=== PATIENT | female | born 1945 | race Caucasian/White ===

== ENCOUNTER → 2018-08-18 12:59 | Outpatient (CLI) | payer OTHER, SELFPAY ==
--- NOTE | 2018-08-18 | DI.MG.S_ITS ---
BILATERAL DIGITAL SCREENING MAMMOGRAM 3D/2D WITH CAD: 08/18/2018 CLINICAL: Routine screening. Comparison is made to exams dated: 08/12/2017 mammogram, 08/10/2016 mammogram, and 07/14/2014 mammogram - [facility]. The tissue of both breasts is extremely dense, which lowers the sensitivity of mammography. Current study was also evaluated with a Computer Aided Detection (CAD) system. There are a benign cyst and post operative findings in the left breast. There also are benign calcifications in both breasts. No significant masses, calcifications, or other findings are seen in either breast. There has been no significant interval change. IMPRESSION: There is no mammographic evidence of malignancy. A 1 year screening mammogram is recommended. This exam was interpreted at Station ID: [id number]. NOTE: For mammograms, a report in lay terms will be sent to the patient. Approximately 15% of breast malignancies will not be visualized mammographically. In the management of a palpable breast mass, a negative mammogram must not discourage biopsy of a clinically suspicious lesion. Electronically Signed By: Brian leon/vince:08/18/2018 13:43:00 letter sent: Normal Exam ACR BI-RADS Category 2: Benign Finding(s) 3342F
== END ==
PROVIDERS: Family Provider Internal Medicine; PCP Internal Medicine; Visit Provider Internal Medicine
DX: Z12.31 Encounter for screening mammogram for malignant neoplasm of breast (principal)
CPT/HCPCS: 77063; 77067

== ENCOUNTER → 2018-08-26 08:19 | Outpatient (CLI) | payer OTHER, SELFPAY ==
[2018-08-26 09:35] LABS: BUN Creatinine Ratio 25.7 (6-22); Blood Urea Nitrogen 18 mg/dL (7-17); Calcium 8.6 mg/dL (8.4-10.2); Carbon Dioxide 29 mmol/L (22-32); Chloride 104 mmol/L (98-107); Cholesterol 167 mg/dL (140-199); Estimated Glomerular Filt Rate > 60.0 mL/min (>60); Glucose 100 mg/dL (80-110); HDL Cholesterol 59 mg/dL (40-60); HEMOLYSIS 20 (0-50); LDL Cholesterol Calculated 98 mg/dL (<100); Potassium 4.6 mmol/L (3.4-5.1); Sodium 140 mmol/L (137-145); Triglycerides 51 mg/dL (35-150)
== END ==
PROVIDERS: Family Provider Internal Medicine; PCP Internal Medicine; Visit Provider Internal Medicine
DX: Z00.00 Encounter for general adult medical examination without abnormal findings (principal)
CPT/HCPCS: 36415; 80048; 80061

== ENCOUNTER → 2018-09-04 13:39 | Outpatient (CLI) | payer OTHER, SELFPAY | PROVIDERS: Family Provider Internal Medicine; PCP Internal Medicine; Visit Provider Internal Medicine | DX: M85.852 Other specified disorders of bone density and structure, left thigh (principal); Z78.0 Asymptomatic menopausal state; Z82.62 Family history of osteoporosis; Z87.891 Personal history of nicotine dependence | CPT/HCPCS: 77080 ==

== ENCOUNTER → 2019-11-12 08:12 | Outpatient (CLI) | payer OTHER, SELFPAY ==
--- NOTE | 2019-11-12 | DI.MG.S_ITS ---
BILATERAL DIGITAL SCREENING MAMMOGRAM 3D/2D WITH CAD: 11/12/2019 CLINICAL: Routine screening. Comparison is made to exams dated: 08/18/2018 mammogram, 08/12/2017 mammogram, 08/10/2016 mammogram, 01/04/2015 mammogram, 07/14/2014 mammogram, and 07/08/2014 mammogram - [facility]. The tissue of both breasts is extremely dense, which lowers the sensitivity of mammography. Current study was also evaluated with a Computer Aided Detection (CAD) system. There is a benign cyst in the left breast. There also are benign calcifications in both breasts. No significant masses, calcifications, or other findings are seen in either breast. There has been no significant interval change. IMPRESSION: There is no mammographic evidence of malignancy. A 1 year screening mammogram is recommended. This exam was interpreted at Station ID: [id number]. NOTE: For mammograms, a report in lay terms will be sent to the patient. Approximately 15% of breast malignancies will not be visualized mammographically. In the management of a palpable breast mass, a negative mammogram must not discourage biopsy of a clinically suspicious lesion. Electronically Signed By: David cordero/vince:11/12/2019 09:50:00 letter sent: Normal Exam ACR BI-RADS Category 2: Benign Finding(s) 3342F
== END ==
PROVIDERS: Family Provider Internal Medicine; PCP Internal Medicine; Referring Provider Internal Medicine; Visit Provider Internal Medicine
DX: Z12.31 Encounter for screening mammogram for malignant neoplasm of breast (principal)
CPT/HCPCS: 77063; 77067

== ENCOUNTER → 2019-11-28 09:21 | Outpatient (CLI) | payer OTHER, SELFPAY ==
[2019-11-30 17:36] LABS: COVID19 Sendout Not Detected (Not Detected)
== END ==
PROVIDERS: Family Provider Internal Medicine; PCP Internal Medicine; Visit Provider Physician Assistant
DX: R05 Cough (principal); R50.9 Fever, unspecified; R51 Headache
CPT/HCPCS: 87635

== ENCOUNTER → 2019-12-07 10:19 | Outpatient (CLI) | payer OTHER, SELFPAY ==
--- NOTE | 2019-12-07 | DI.RAD.S_ITS ---
PROCEDURE: XR CHEST 2V INDICATIONS: COUGH TECHNIQUE: 2 views of the chest were acquired. COMPARISON: None. FINDINGS: Surgical changes and devices: None. Dense consolidation seen within the right upper lobe. There is also dense left perihilar consolidation. Patchy ill-defined and consolidative opacities in the right lung base. No pleural effusions or pneumothorax. Mediastinum: Mediastinal contours are normal. Heart size is normal. Bones and chest wall: No vertebral body compression fracture. Spondylytic changes and facet arthropathy. Lateral curvature of the spine IMPRESSION: Severe bilateral dense pneumonia as above. Findings were immediately and personally telephoned to Cora CHAVEZ, covering for Dr. Cortes at the time of the study. Arrangements were made to transfer the patient to the emergency department for further treatment and assessment. Findings were also personally telephoned to Dr. Monroe in the emergency department at the time of the study. Dictated by: Gamaliel Perez M.D. on 12/07/2019 at 11:32 Approved by: Gamaliel Perez M.D. on 12/07/2019 at 11:37
[2019-12-07 10:40] LABS: RBC Urine None Seen (0-5/HPF)
[2019-12-07 11:04] LABS: Add Manual Diff / Slide Review NO; Basophils Absolute Auto 100 /uL (0-100); Basophils Percent Auto 0.6 % (0-2); Eosinophils Absolute Auto 100 /uL (0-450); Eosinophils Percent Auto 0.5 % (2-4); Hematocrit 38.6 % (36-46); Lymphocytes Absolute Auto 4600 /uL (1100-4500); Lymphocytes Percent Auto 21.1 % (25-40); Mean Corpuscular HGB Conc 33.5 % (30-36); Mean Corpuscular Hemoglobin 30.7 PG (26-34); Mean Corpuscular Volume 91.4 fL (80-100); Monocytes Absolute Auto 4500 /uL (0-900); Monocytes Percent Auto 20.6 % (3-14); Neutrophils Absolute Auto 12400 /uL (1500-7000); Neutrophils Percent Auto 57.2 % (50-75); Platelet Count 81 X10^3/uL (150-400); Red Blood Cell Count 4.23 X10^6/uL (4.0-5.2); Red Cell Distribution Width 15.2 % (11.6-14.8); White Blood Cell Count 21.7 X10^3/uL (4.5-11.0)
[2019-12-07 11:17] LABS: Albumin 2.7 g/dL (3.5-5.0); Albumin Globulin Ratio 0.8 (1.0-2.8); Alkaline Phosphatase 320 U/L (38-126); Aspartate Aminotransferase 120 IU/L (14-36); BUN Creatinine Ratio 50.4 (6-22); Bilirubin Total 3.9 mg/dL (0.2-1.3); Blood Urea Nitrogen 68 mg/dL (7-17); Calcium 8.8 mg/dL (8.4-10.2); Carbon Dioxide 21 mmol/L (22-32); Chloride 98 mmol/L (98-107); Estimated Glomerular Filt Rate 38.3 mL/min (>60); Globulin 3.3 g/dL (1.7-4.1); Glucose 104 mg/dL (80-110); HEMOLYSIS < 15 (0-50); Potassium 4.2 mmol/L (3.4-5.1); Sodium 134 mmol/L (137-145)
[2019-12-07 11:23] LABS: Alanine Aminotransferase 92 IU/L (<35)
[2019-12-07 15:04] LABS: Appearance Urine UA CLOUDY; Bilirubin Urine UA 2+ (NEGATIVE); Color Urine UA BROWN; Glucose Urine UA NEGATIVE (Negative); Ketones Urine UA NEGATIVE (NEGATIVE); Leukocyte Esterase Urine UA NEGATIVE (NEGATIVE); Nitrite Urine UA NEGATIVE (Negative); Occult Blood Urine UA NEGATIVE (Negative); Protein Urine UA 1+ (Negative)
[2019-12-07 15:31] LABS: Amorphous Sediment Urine 2+; Bacteria Urine Moderate (10-30); Granular Casts Urine 1-5/LPF; Squamous Epithelial Cell Urine 1-5 /HPF (0-5/HPF); WBC Urine 5-10/HPF (0-5/HPF)
[2019-12-07 15:32] LABS: Culture Indicated Urine Specimen Cultured; Mucus Urine 2+ (Negative)
[2019-12-07 15:33] LABS: Ictotest Urine Positive (Negative)
== END ==
PROVIDERS: Family Provider Internal Medicine; PCP Internal Medicine; Referring Provider Internal Medicine; Visit Provider Internal Medicine
DX: R53.1 Weakness (principal); R06.02 Shortness of breath; R05 Cough
CPT/HCPCS: 36415; 71046; 80053; 81001; 85025; 87086

== ENCOUNTER 2019-12-07 11:24 | Emergency (ER) | payer OTHER, SELFPAY ==
[2019-12-07] VITALS (52 sets, daily range): BP systolic 84–163; BP diastolic 49–74; PULSE 87–144; RESP 9–44; TEMP 35.4; O2SAT 59–98
--- NOTE | 2019-12-07 | DI.RAD.S_ITS ---
PROCEDURE: XR ABDOMEN 1V INDICATIONS: NG TUBE PLACEMENT TECHNIQUE: One view of the abdomen acquired. COMPARISON: None. FINDINGS: Surgical changes and devices: NG tube is present in the stomach. Overlying monitoring wires are present. Bowel: Bowel gas pattern is normal. Soft tissues: No suspicious abdominal calcifications. Visualized solid organ contours appear normal in size. Bones: No suspicious bony lesions. Scoliosis. IMPRESSION: Adequate placement of nasogastric tube. Dictated by: Anastasiya Valerio M.D. on 12/07/2019 at 14:44 Approved by: Anastasiya Valerio M.D. on 12/07/2019 at 14:45
--- NOTE | 2019-12-07 12:07 | PC.NURSE ---
Pt to room 6. Placed on high flow oxygen w/ sat 59 improved to 75%, Pt states she does want to intubated / full code.
[2019-12-07] MEDS: SODIUM CHLORIDE 0.9% 1,000 ML 1000 ML IV ×2 (12:10→12:15)
[2019-12-07] MEDS: SODIUM CHLORIDE 0.9% 1,000 ML 125 ML IV (12:10)
[2019-12-07 12:13] LABS: Add Manual Diff / Slide Review NO; Basophils Absolute Auto 200 /uL (0-100); Basophils Percent Auto 0.7 % (0-2); Eosinophils Absolute Auto 0 /uL (0-450); Eosinophils Percent Auto 0.1 % (2-4); Hematocrit 39.4 % (36-46); Hemoglobin 13.3 g/dL (12.0-16.0); Lymphocytes Absolute Auto 9800 /uL (1100-4500); Lymphocytes Percent Auto 42.5 % (25-40); Mean Corpuscular HGB Conc 33.7 % (30-36); Mean Corpuscular Hemoglobin 30.9 PG (26-34); Mean Corpuscular Volume 91.4 fL (80-100); Monocytes Absolute Auto 800 /uL (0-900); Monocytes Percent Auto 3.4 % (3-14); Neutrophils Absolute Auto 12300 /uL (1500-7000); Neutrophils Percent Auto 53.3 % (50-75); Platelet Count 80 X10^3/uL (150-400); Red Blood Cell Count 4.31 X10^6/uL (4.0-5.2); Red Cell Distribution Width 15.9 % (11.6-14.8); White Blood Cell Count 23.1 X10^3/uL (4.5-11.0)
[2019-12-07] MEDS: VANCOMYCIN 1,000 MG/200 ML PIGGYBACK 200 MG IV (12:15)
[2019-12-07] MEDS: methylPREDNISolone 125 MG/2 ML VIAL IV (12:15)
[2019-12-07 12:24] LABS: Albumin Globulin Ratio 0.9 (1.0-2.8); Alkaline Phosphatase 356 U/L (38-126); Aspartate Aminotransferase 129 IU/L (14-36); BUN Creatinine Ratio 42.2 (6-22); Bilirubin Total 4.2 mg/dL (0.2-1.3); Blood Urea Nitrogen 68 mg/dL (7-17); Calcium 9.3 mg/dL (8.4-10.2); Carbon Dioxide 19 mmol/L (22-32); Chloride 97 mmol/L (98-107); Creatine Kinase < 20 U/L (30-135); Estimated Glomerular Filt Rate 31.3 mL/min (>60); Globulin 3.5 g/dL (1.7-4.1); Glucose 109 mg/dL (80-110); HEMOLYSIS < 15 (0-50); Lactate Dehydrogenase 939 U/L (313-618); Potassium 4.4 mmol/L (3.4-5.1); Sodium 135 mmol/L (137-145); Total Protein 6.5 g/dL (6.3-8.2)
[2019-12-07 12:25] LABS: D Dimer 2315 ng/mL (<230)
--- NOTE | 2019-12-07 12:27 | ED_ITS ---
HPI - SOB/Dyspnea General Chief Complaint: Shortness of Breath/Dyspnea Stated Complaint: Andreia XR sent pt over Time Seen by Provider: 12/07/19 12:06 Source: patient and family Mode of arrival: Wheelchair Limitations: no limitations History of Present Illness HPI Narrative: CC: Hypoxia and shortness of breath. HPI: Patient had shortness of breath on November 26. She was treated with steroids at that time and antibiotics. The patient improve shortly and then a few days ago suddenly became worse. She has had a mild cough that has been nonproductive of any sputum. She denies a history of diabetes mellitus hy pertension myocardial infarction asthma or COPD. She has had no chest pain or pain or discomfort. She has just developed progressive weakness and fatigue with shortness of breath and respiratory distress. The patient was seen today in radiology and radiology sent the patient over here to the emergency department because she had a complete opacification of the right upper lobe. She also had opacification and infiltrate in the left middle lung field. The patient was initially evaluated on November 26 and was negative for Covid at that time. She currently denies any fever chills or sweats. She has had no nasal congestion sinus congestion or sore throat. She has had no abdominal pain she h as been nauseous but has had no vomiting or diarrhea. She has had no urinary symptoms. Related Data Home Medications Medication Instructions Recorded Confirmed calcium crb,[id number] 1 tab PO DAILY 12/07/19 12/07/19 [Citracal Plus Bone Density] Previous Rx's Medication Instructions Recorded amoxicillin 875 mg-potassium 1 tab PO BID #20 tab 11/28/19 clavulanate 125 mg tablet Allergies Allergy/AdvReac Type Severity Reaction Status Date / Time Sulfa (Sulfonamide Allergy Verified 12/07/19 13:13 Antibiotics) Review of Systems Review of Systems Narrative: Her review of systems were all negative except for those mentioned in the history of present illness. Patient History Medical History Pneumonia (Acute) Social History Smoking Status: Never smoker Smoking Status: Never smoker alcohol intake frequency: 0-2 drinks per day Substance Use Type: does not use Exam Narrative Exam Narrative: PHYSICAL EXAM: CONSTITUTIONAL: Awake, Alert, apprehensive in appears fearful. The patient appears chronically ill and very thin. l. HEAD: AT/NC EENT: PERRL, FROM of eyes, no discharge, . NOSE:No epistaxis or nasal drainage MOUTH:Oral mucosa is moist and pink, appears pale NECK: Supple, no obvious JVD, Trachea is midline without stridor, no palpable LN. SPINE: Palpationof the cervical, Thoracic, Lumbar or Sacral spine reveals no gross deformity or tenderness. No CVA tenderness. THORAX: No deformity, retractions, chest wall tenderness. LUNGS: Decreased breath sounds on the right lung with inspiratory crackles throughout both lung castellanos posteriorly. HEART: Tachycardic and regular. No appreciable murmur. Heart tones are distant ABDOMEN: Soft, non-tender, normal bowel sounds without guarding, rebound, rigidity or palpable mass. EXTREMITIES: No edema, deformity, tenderness or cyanosis. SKIN: No rash, bruising, petechiae or purpura. NEURO: Awake, alert, oriented, conversive, cranial nerves II-XII are symmetrical , moves all 4 extremities and is ambulatory. Initial Vital Signs Initial Vital Signs: Vital Signs Temperature 95.8 F L 12/07/19 11:44 Pulse Rate 103 H 12/07/19 11:44 Respiratory Rate 22 12/07/19 11:44 Blood Pressure 94/53 L 12/07/19 11:44 Pulse Oximetry 59 L 12/07/19 11:44 Course Course Course Narrative: 1230: The patient is currently on BiPAP. The patient was significantly hypoxic at 59%. The patient will need to be intubated most likely. Arterial blood gases will be performed to see whether not the patient responds to BiPAP. The patient is being evaluated for Coviid 19, she has been administered Levaquin and vancomycin. 1308: The patient's blood gas on 100% via to reveals a pH is 7.376 a pCO2 of 32.9 a PO2 of 69 and oxygen saturation 93% and this is on BiPAP. 1311: The patient's procalcitonin is 14.0. All of her liver function tests are abnormal. CRP is 43.2 BNP is 3800 in 20 lactate is elevated at 6.7 sodium is 135 potassium is 4.4 chloride 97 CO2 19 creatinine is 1.61 GFR is 31. WBCs are 23.1. The patient has been administered Levaquin and vancomycin as antibiotics and blood cultures remain pending. The patient's D-dimer is 2315 , troponin is less than 0.012. 1409: I discussed the patient with Dr. Miles the hogshead builder at [facility] in [place]. He has agreed to accept the patient. He recommends that we intubate the patient and if possible started a central line on the patient. 1448: Oral endotracheal intubation completed. Using the glide scope by staffed the solar panel technician who successfully intubated the patient without complications on the 1st attempt using a 7.5 Serbian endotracheal tube at 25 cm lip line. The patient maintained good saturations throughout the process at 90 to 94% oxygen saturation. Her heart rate went up to 144. Blood pressure remained between 128 and 144. 22.2 mg of etomidate. and 44 mg of Rocuronium. Symmetrical breath sounds. An NG tube is being placed on the patient the patient has been started on an infusion of propofol. The patient is maintaining good blood pressure at this time. A stat portable chest x-ray has been ordered on the patient to check tube placement. 1511: After intubation the patient's arterial blood gases on a rate of 16 revealed a pH is 7.161 a pCO2 of 60.6 and PO2 of 81 with an oxygen saturation of 92%. The rate is being increased to 24 and blood gases recheck. 1511: The helicopter transporting EMS is here to take the patient to [facility] Orders Ordered: ED Orders 12/07/19 12:00 Blood Culture Stat C-Reactive Protein Quant Stat Complete Blood Count AUTO DIFF Stat Comprehensive Metabolic Panel Stat D Dimer Stat Ferritin Stat Lactate (Lactic Acid) Stat Lactate Dehydrogenase Stat NT-proBNP (BNP-Adult 18+) Stat Procalcitonin Stat Troponin & CK Cardiac Panel Stat 12/07/19 12:05 BiPAP Ventilatory Support RT PROTOCOL EKG-12 Lead Stat 12/07/19 12:31 Arterial Blood Gas Stat 12/07/19 13:30 Ictotest Urine Stat Urinalysis and Microscopic Stat Urine Culture Stat 12/07/19 13:46 Consult to Dietitian, Adult Routine Arterial Blood Gas Stat Endotracheal tube suction As needed 12/07/19 14:00 XR chest 1V DAILY 12/07/19 15:00 Sputum Culture Stat 12/07/19 15:05 Arterial Blood Gas Routine Discontinued Medications Etomidate (Amidate) 22.2 mg 0.3 mg/kg (22.2 mg) IV NOW ONE Stop: 12/07/19 13:47 Last Admin: 12/07/19 14:38 Dose: 22.2 mg Documented by: MCKENZIE Fentanyl (Sublimaze) 25 mcg IV Q30MIN PRN PRN Reason: Pain, Severe (7-10) Last Admin: 12/07/19 15:05 Dose: 25 mcg Documented by: NATHANIEL Levofloxacin (Levaquin) 750 mg in 150 mls @ 100 mls/hr IV NOW ONE Stop: 12/07/19 13:35 Last Infusion: 12/07/19 14:50 Dose: 0 mls/hr Documented by: Admin: 12/07/19 13:20 Dose: 100 mls/hr Documented by: NATHANIEL Vancomycin HCl (Vancomycin) 1,000 mg in 200 mls @ 200 mls/hr IV Q24H KAYLIN Last Infusion: 12/07/19 13:20 Dose: 0 mls/hr Documented by: Admin: 12/07/19 12:15 Dose: 200 mls/hr Documented by: MCKENZIE Sodium Chloride (Normal Saline 0.9%) 1,000 mls @ 1,000 mls/hr IV BOLUS ONE Stop: 12/07/19 13:07 Last Infusion: 12/07/19 13:45 Dose: 0 mls/hr Documented by: Admin: 12/07/19 12:10 Dose: 1,000 mls/hr Documented by: MCKENZIE Sodium Chloride (Normal Saline 0.9%) 1,000 mls @ 125 mls/hr IV BOLUS ONE Stop: 12/07/19 20:07 Last Infusion: 12/07/19 15:37 Dose: 0 mls/hr Documented by: Infusion: 12/07/19 15:37 Dose: 150 mls/hr Documented by: Infusion: 12/07/19 14:57 Dose: 150 mls/hr Documented by: Admin: 12/07/19 12:10 Dose: 125 mls/hr Documented by: MCKENZIE Sodium Chloride (Normal Saline 0.9%) 1,000 mls @ 1,000 mls/hr IV BOLUS ONE Stop: 12/07/19 13:14 Last Infusion: 12/07/19 14:00 Dose: 0 mls/hr Documented by: Admin: 12/07/19 12:15 Dose: 1,000 mls/hr Documented by: NATHANIEL Propofol (Propofol) 1,000 mg in 100 mls @ 4.436 mls/hr IV TITRATE KAYLIN; Protocol Last Titration: 12/07/19 15:39 Dose: 0 mcg/kg/min, 0 mls/hr Documented by: Titration: 12/07/19 15:00 Dose: 20 mcg/kg/min, 8.872 mls/hr Documented by: Admin: 12/07/19 14:59 Dose: 10 mcg/kg/min, 4.436 mls/hr Documented by: MCKENZIE Methylprednisolone (Solu-Medrol 125 Mg Vial) 125 mg IV NOW ONE Stop: 12/07/19 12:07 Last Admin: 12/07/19 12:15 Dose: 125 mg Documented by: MCKENZIE Rocuronium [place] (Zemuron) 44 mg 0.6 mg/kg (44 mg) IV NOW ONE Stop: 12/07/19 13:47 Last Admin: 12/07/19 14:45 Dose: 44 mg Documented by: MCKENZIE Vital Signs Vital signs: Vital Signs - 8 hr 12/07/19 12:55 12/07/19 13:00 12/07/19 13:01 Pulse Rate 91 H 89 91 H Respiratory Rate 34 H 35 H 33 H Blood Pressure 88/55 L Pulse Oximetry 96 90 L 97 12/07/19 13:05 12/07/19 13:10 12/07/19 13:15 Pulse Rate 87 92 H 92 H Respiratory Rate 27 H 33 H 32 H Blood Pressure 95/55 L Pulse Oximetry 97 97 97 12/07/19 13:20 12/07/19 13:21 12/07/19 13:25 Pulse Rate 98 H 97 H 97 H Respiratory Rate 36 H 44 H 34 H Blood Pressure 99/54 L Pulse Oximetry 96 96 95 12/07/19 13:30 12/07/19 13:35 12/07/19 13:40 Pulse Rate 96 H 91 H 94 H Respiratory Rate 34 H 33 H 33 H Blood Pressure 105/59 L 104/49 L Pulse Oximetry 98 94 96 12/07/19 13:45 12/07/19 13:50 12/07/19 13:55 Pulse Rate 93 H 92 H 95 H Respiratory Rate 34 H 33 H 33 H Blood Pressure 91/52 L Pulse Oximetry 94 94 94 12/07/19 14:00 12/07/19 14:05 12/07/19 14:10 Pulse Rate 93 H 92 H 96 H Respiratory Rate 31 H 34 H 34 H Blood Pressure 94/61 102/56 L Pulse Oximetry 93 94 93 12/07/19 14:15 12/07/19 14:20 12/07/19 14:25 Pulse Rate 93 H 93 H 95 H Respiratory Rate 32 H 32 H 35 H Blood Pressure 97/52 L Pulse Oximetry 93 92 93 12/07/19 14:30 12/07/19 14:34 12/07/19 14:35 Pulse Rate 95 H 95 H 96 H Respiratory Rate 35 H 26 H 24 Blood Pressure 102/54 L 122/65 Pulse Oximetry 93 86 L 88 L 12/07/19 14:36 12/07/19 14:40 12/07/19 14:42 Pulse Rate 96 H 121 H 139 H Respiratory Rate 21 20 13 Blood Pressure 114/58 L 145/72 H 132/67 Pulse Oximetry 94 87 L 93 12/07/19 14:44 12/07/19 14:45 12/07/19 14:48 Pulse Rate 129 H 128 H 130 H Respiratory Rate 9 L 9 L 17 Blood Pressure 117/60 153/67 H Pulse Oximetry 93 92 91 12/07/19 14:50 12/07/19 14:52 12/07/19 14:53 Pulse Rate 109 H 113 H 115 H Respiratory Rate 13 16 16 Blood Pressure 142/68 H 138/62 Pulse Oximetry 88 L 88 L 88 L 12/07/19 14:55 12/07/19 14:56 12/07/19 15:00 Pulse Rate 117 H 122 H 141 H Respiratory Rate 16 17 16 Blood Pressure 145/66 H 152/73 H Pulse Oximetry 91 91 92 12/07/19 15:01 12/07/19 15:03 12/07/19 15:04 Pulse Rate 141 H 143 H 141 H Respiratory Rate 16 16 21 Blood Pressure 157/74 H 157/67 H 163/72 H Pulse Oximetry 93 93 92 12/07/19 15:05 12/07/19 15:14 12/07/19 15:25 Pulse Rate 144 H 140 H 133 H Respiratory Rate 16 23 Blood Pressure 133/65 Pulse Oximetry 94 90 L 90 L MDM - SOB/Dyspnea Lab Data Result diagrams: 12/07/19 12:00 12/07/19 12:00 Labs: Lab Results 12/07/19 12/07/19 12/07/19 Range/Units 12:00 12:00 12:00 WBC 23.1 H (4.5-11.0) X10^3/uL RBC 4.31 (4.0-5.2) X10^6/uL Hgb 13.3 (12.0-16.0) g/dL Hct 39.4 (36-46) % MCV 91.4 (80-100) fL MCH 30.9 (26-34) PG MCHC 33.7 (30-36) % RDW 15.9 H (11.6-14.8) % Plt Count 80 L (150-400) X10^3/uL Neut % (Auto) 53.3 (50-75) % Lymph % (Auto) 42.5 H D (25-40) % [place] % (Auto) 3.4 (3-14) % Eos % (Auto) 0.1 L (2-4) % Baso % (Auto) 0.7 (0-2) % Neut # (Auto) 08237 H (9010-2929) /uL Lymph # (Auto) 9800 H (8909-3926) /uL [place] # (Auto) 800 (0-900) /uL Eos # (Auto) 0 (0-450) /uL Baso # (Auto) 200 H (0-100) /uL D-Dimer 2315 H (<230) ng/mL ABG pH (7.35-7.45) ABG pCO2 (35-45) mmHg ABG pO2 (80-100) mmHg ABG HCO3 (22-26) mmol/L ABG Total CO2 (21-31) mmol/L ABG O2 Saturation (95-100) % ABG Base Excess (-2-2) mmol/L FiO2 Sodium (137-145) mmol/L Potassium (3.4-5.1) mmol/L Chloride (98-107) mmol/L Carbon Dioxide (22-32) mmol/L BUN (7-17) mg/dL Creatinine (0.52-1.04) mg/dL Estimated GFR (>60) mL/min BUN/Creatinine Ratio (6-22) Glucose (80-110) mg/dL Lactate (0.7-2.1) mmol/L Calcium (8.4-10.2) mg/dL Ferritin (11-264) ng/mL Total Bilirubin (0.2-1.3) mg/dL AST (14-36) IU/L ALT (<35) IU/L Alkaline Phosphatase (38-126) U/L Lactate Dehydrogenase (313-618) U/L Total Creatine Kinase (30-135) U/L CK-MB (CK-2) CK-MB (CK-2) Rel Index Troponin I (0.01-0.034) ng/mL C-Reactive Protein (<1.0) mg/dL NT-Pro-B Natriuret Pep (<125) pg/mL Total Protein (6.3-8.2) g/dL Albumin (3.5-5.0) g/dL Globulin (1.7-4.1) g/dL Albumin/Globulin Ratio (1.0-2.8) Procalcitonin 14.02 H (<0.5) ng/mL Urine Color Urine Appearance Urine pH (4.5-8.0) Ur Specific [place] (1.000-1.035) Urine Protein (Negative) Urine Glucose (UA) (Negative) g/dL Urine Ketones (NEGATIVE) Urine Occult Blood (Negative) Urine Nitrate (Negative) Urine Bilirubin (NEGATIVE) Ur Bilirubin Confirm (Negative) Urine Urobilinogen (0.2) E.U./dL Ur Leukocyte Esterase (NEGATIVE) Urine RBC (0-5/HPF) Urine WBC (0-5/HPF) Amorphous Sediment Urine Bacteria (None) Ur Culture Indicated? COVID-19 PCR (Negative) 12/07/19 12/07/19 12/07/19 Range/Units 12:00 12:00 12:10 WBC (4.5-11.0) X10^3/uL RBC (4.0-5.2) X10^6/uL Hgb (12.0-16.0) g/dL Hct (36-46) % MCV (80-100) fL MCH (26-34) PG MCHC (30-36) % RDW (11.6-14.8) % Plt Count (150-400) X10^3/uL Neut % (Auto) (50-75) % Lymph % (Auto) (25-40) % [place] % (Auto) (3-14) % Eos % (Auto) (2-4) % Baso % (Auto) (0-2) % Neut # (Auto) (6580-6532) /uL Lymph # (Auto) (6361-5681) /uL [place] # (Auto) (0-900) /uL Eos # (Auto) (0-450) /uL Baso # (Auto) (0-100) /uL D-Dimer (<230) ng/mL ABG pH (7.35-7.45) ABG pCO2 (35-45) mmHg ABG pO2 (80-100) mmHg ABG HCO3 (22-26) mmol/L ABG Total CO2 (21-31) mmol/L ABG O2 Saturation (95-100) % ABG Base Excess (-2-2) mmol/L FiO2 Sodium 135 L (137-145) mmol/L Potassium 4.4 (3.4-5.1) mmol/L Chloride 97 L (98-107) mmol/L Carbon Dioxide 19 L (22-32) mmol/L BUN 68 H (7-17) mg/dL Creatinine 1.61 H (0.52-1.04) mg/dL Estimated GFR 31.3 L (>60) mL/min BUN/Creatinine Ratio 42.2 H (6-22) Glucose 109 (80-110) mg/dL Lactate 6.7 H* (0.7-2.1) mmol/L Calcium 9.3 (8.4-10.2) mg/dL Ferritin 2200 H (11-264) ng/mL Total Bilirubin 4.2 H (0.2-1.3) mg/dL AST 129 H (14-36) IU/L ALT 99 H (<35) IU/L Alkaline Phosphatase 356 H (38-126) U/L Lactate Dehydrogenase 939 H (313-618) U/L Total Creatine Kinase < 20 L (30-135) U/L CK-MB (CK-2) TNP CK-MB (CK-2) Rel Index TNP Troponin I < 0.012 (0.01-0.034) ng/mL C-Reactive Protein 43.2 H (<1.0) mg/dL NT-Pro-B Natriuret Pep 3820 H (<125) pg/mL Total Protein 6.5 (6.3-8.2) g/dL Albumin 3.0 L (3.5-5.0) g/dL Globulin 3.5 (1.7-4.1) g/dL Albumin/Globulin Ratio 0.9 L (1.0-2.8) Procalcitonin (<0.5) ng/mL Urine Color Urine Appearance Urine pH (4.5-8.0) Ur Specific [place] (1.000-1.035) Urine Protein (Negative) Urine Glucose (UA) (Negative) g/dL Urine Ketones (NEGATIVE) Urine Occult Blood (Negative) Urine Nitrate (Negative) Urine Bilirubin (NEGATIVE) Ur Bilirubin Confirm (Negative) Urine Urobilinogen (0.2) E.U./dL Ur Leukocyte Esterase (NEGATIVE) Urine RBC (0-5/HPF) Urine WBC (0-5/HPF) Amorphous Sediment Urine Bacteria (None) Ur Culture Indicated? COVID-19 PCR Negative (Negative) 12/07/19 12/07/19 12/07/19 Range/Units 12:31 13:30 14:20 WBC (4.5-11.0) X10^3/uL RBC (4.0-5.2) X10^6/uL Hgb (12.0-16.0) g/dL Hct (36-46) % MCV (80-100) fL MCH (26-34) PG MCHC (30-36) % RDW (11.6-14.8) % Plt Count (150-400) X10^3/uL Neut % (Auto) (50-75) % Lymph % (Auto) (25-40) % [place] % (Auto) (3-14) % Eos % (Auto) (2-4) % Baso % (Auto) (0-2) % Neut # (Auto) (6313-8208) /uL Lymph # (Auto) (1713-2018) /uL [place] # (Auto) (0-900) /uL Eos # (Auto) (0-450) /uL Baso # (Auto) (0-100) /uL D-Dimer (<230) ng/mL ABG pH 7.38 (7.35-7.45) ABG pCO2 32.9 L (35-45) mmHg ABG pO2 69 L (80-100) mmHg ABG HCO3 19 L (22-26) mmol/L ABG Total CO2 20 L (21-31) mmol/L ABG O2 Saturation 93 L (95-100) % ABG Base Excess -6.0 L (-2-2) mmol/L FiO2 100 Sodium (137-145) mmol/L Potassium (3.4-5.1) mmol/L Chloride (98-107) mmol/L Carbon Dioxide (22-32) mmol/L BUN (7-17) mg/dL Creatinine (0.52-1.04) mg/dL Estimated GFR (>60) mL/min BUN/Creatinine Ratio (6-22) Glucose (80-110) mg/dL Lactate 3.2 H (0.7-2.1) mmol/L Calcium (8.4-10.2) mg/dL Ferritin (11-264) ng/mL Total Bilirubin (0.2-1.3) mg/dL AST (14-36) IU/L ALT (<35) IU/L Alkaline Phosphatase (38-126) U/L Lactate Dehydrogenase (313-618) U/L Total Creatine Kinase (30-135) U/L CK-MB (CK-2) CK-MB (CK-2) Rel Index Troponin I (0.01-0.034) ng/mL C-Reactive Protein (<1.0) mg/dL NT-Pro-B Natriuret Pep (<125) pg/mL Total Protein (6.3-8.2) g/dL Albumin (3.5-5.0) g/dL Globulin (1.7-4.1) g/dL Albumin/Globulin Ratio (1.0-2.8) Procalcitonin (<0.5) ng/mL Urine Color Yellow Urine Appearance Clear Urine pH 5.0 (4.5-8.0) Ur Specific [place] 1.015 (1.000-1.035) Urine Protein 1+ H (Negative) Urine Glucose (UA) Negative (Negative) g/dL Urine Ketones Negative (NEGATIVE) Urine Occult Blood Negative (Negative) Urine Nitrate Negative (Negative) Urine Bilirubin 2+ H (NEGATIVE) Ur Bilirubin Confirm Positive H (Negative) Urine Urobilinogen 1.0 (0.2) E.U./dL Ur Leukocyte Esterase Negative (NEGATIVE) Urine RBC 1-5/hpf (0-5/HPF) Urine WBC 5-10/hpf H (0-5/HPF) Amorphous Sediment 3+ Urine Bacteria Many (>30) H (None) Ur Culture Indicated? Specimen cultured COVID-19 PCR (Negative) 12/07/19 Range/Units 15:05 WBC (4.5-11.0) X10^3/uL RBC (4.0-5.2) X10^6/uL Hgb (12.0-16.0) g/dL Hct (36-46) % MCV (80-100) fL MCH (26-34) PG MCHC (30-36) % RDW (11.6-14.8) % Plt Count (150-400) X10^3/uL Neut % (Auto) (50-75) % Lymph % (Auto) (25-40) % [place] % (Auto) (3-14) % Eos % (Auto) (2-4) % Baso % (Auto) (0-2) % Neut # (Auto) (4013-9047) /uL Lymph # (Auto) (4478-7174) /uL [place] # (Auto) (0-900) /uL Eos # (Auto) (0-450) /uL Baso # (Auto) (0-100) /uL D-Dimer (<230) ng/mL ABG pH 7.16 L* (7.35-7.45) ABG pCO2 60.6 H (35-45) mmHg ABG pO2 81 (80-100) mmHg ABG HCO3 22 (22-26) mmol/L ABG Total CO2 23 (21-31) mmol/L ABG O2 Saturation 92 L (95-100) % ABG Base Excess -7.0 L (-2-2) mmol/L FiO2 1.0 Sodium (137-145) mmol/L Potassium (3.4-5.1) mmol/L Chloride (98-107) mmol/L Carbon Dioxide (22-32) mmol/L BUN (7-17) mg/dL Creatinine (0.52-1.04) mg/dL Estimated GFR (>60) mL/min BUN/Creatinine Ratio (6-22) Glucose (80-110) mg/dL Lactate (0.7-2.1) mmol/L Calcium (8.4-10.2) mg/dL Ferritin (11-264) ng/mL Total Bilirubin (0.2-1.3) mg/dL AST (14-36) IU/L ALT (<35) IU/L Alkaline Phosphatase (38-126) U/L Lactate Dehydrogenase (313-618) U/L Total Creatine Kinase (30-135) U/L CK-MB (CK-2) CK-MB (CK-2) Rel Index Troponin I (0.01-0.034) ng/mL C-Reactive Protein (<1.0) mg/dL NT-Pro-B Natriuret Pep (<125) pg/mL Total Protein (6.3-8.2) g/dL Albumin (3.5-5.0) g/dL Globulin (1.7-4.1) g/dL Albumin/Globulin Ratio (1.0-2.8) Procalcitonin (<0.5) ng/mL Urine Color Urine Appearance Urine pH (4.5-8.0) Ur Specific [place] (1.000-1.035) Urine Protein (Negative) Urine Glucose (UA) (Negative) g/dL Urine Ketones (NEGATIVE) Urine Occult Blood (Negative) Urine Nitrate (Negative) Urine Bilirubin (NEGATIVE) Ur Bilirubin Confirm (Negative) Urine Urobilinogen (0.2) E.U./dL Ur Leukocyte Esterase (NEGATIVE) Urine RBC (0-5/HPF) Urine WBC (0-5/HPF) Amorphous Sediment Urine Bacteria (None) Ur Culture Indicated? COVID-19 PCR (Negative) Urine Dip Bedside Urine Glucose Negative Bedside Urine Bilirubin ++ 2 Bedside Urine Ketone - Negative Urine Specific [place] 1.020 Bedside Urine Occult Blood - Negative Bedside Urine pH 5.5 Bedside Urine Protein + 30 Bedside Urine Urobilinogen 1+ 2mg Bedside Urine Nitrite + Positive Bedside Urine Leukocytes + 70 Esterase Discharge Plan Departure Patient Disposition: [facility] Clinical Impression: Hypoxia Community acquired pneumonia Qualifiers: Laterality: unspecified laterality Qualified Code(s): J18.9 - Pneumonia, unspecified organism Bilateral pneumonia Qualifiers: Pneumonia type: due to unspecified organism Lung location: unspecified part of lung Qualified Code(s): J18.9 - Pneumonia, unspecified organism Discharge Date/Time: 12/07/19 16:16 Prescriptions: No Action amoxicillin-pot clavulanate [Augmentin] 875-125 mg tablet 1 tab PO BID Qty: 20 RF: 0 Citracal Plus Bone Density 300-200-13.5 mg-unit-mg tablet 1 tab PO DAILY RF: 0 Referrals: Stephany Cortes MD [Primary Care Provider] -
[2019-12-07 12:28] LABS: Lactate (Lactic Acid) 6.7 mmol/L (0.7-2.1)
[2019-12-07 12:31] LABS: Alanine Aminotransferase 99 IU/L (<35)
[2019-12-07 12:34] LABS: Procalcitonin 14.02 ng/mL (<0.5)
[2019-12-07 12:38] LABS: NT-proBNP (BNP-Adult 18+) 3820 pg/mL (<125); Troponin I < 0.012 ng/mL (0.01-0.034)
[2019-12-07 12:48] LABS: Fractionated Inspired Oxygen 100; HCO3 ABG 19 mmol/L (22-26); Oxygen Saturation ABG 93 % (95-100); PCO2 ABG 32.9 mmHg (35-45); PO2 ABG 69 mmHg (80-100); TCO2 ABG 20 mmol/L (21-31); pH ABG 7.38 (7.35-7.45)
[2019-12-07 12:55] LABS: C-Reactive Protein Quant 43.2 mg/dL (<1.0)
--- NOTE | 2019-12-07 13:10 | PC.NURSE ---
RN at bedside since arrival to room. Patient tolerating BIPAP well. at bedside.
[2019-12-07 13:13] LABS: COVID19 -Nasal RAPID Negative (Negative)
--- NOTE | 2019-12-07 13:41 | PC.NURSE ---
patient reports increase weakness, fatigue oxygen desats with movement in bed to 86%, heart rate increase 130's recovers at rest. Patient tearful. at bedside. Provider aware of patients reports of increase fatigue. Appears lethargic, alert and oriented.
[2019-12-07] MEDS: levoFLOXacin 750 MG/150 ML PIGGYBACK 100 MG IV (13:43)
[2019-12-07 13:45] LABS: Appearance Urine UA CLEAR; Bilirubin Urine UA 2+ (NEGATIVE); Color Urine UA YELLOW; Glucose Urine UA NEGATIVE (Negative); Ketones Urine UA NEGATIVE (NEGATIVE); Leukocyte Esterase Urine UA NEGATIVE (NEGATIVE); Nitrite Urine UA NEGATIVE (Negative); Occult Blood Urine UA NEGATIVE (Negative); Protein Urine UA 1+ (Negative); Specific Gravity Urine UA 1.015 (1.000-1.035)
[2019-12-07 13:46] LABS: Ferritin 2200 ng/mL (11-264)
[2019-12-07 13:57] LABS: Amorphous Sediment Urine 3+; RBC Urine 1-5/HPF (0-5/HPF); WBC Urine 5-10/HPF (0-5/HPF)
[2019-12-07 13:58] LABS: Bacteria Urine Many (>30); Culture Indicated Urine Specimen Cultured
--- NOTE | 2019-12-07 14:00 | DI.RAD.S_ITS ---
PROCEDURE: XR CHEST 1V INDICATIONS: post intubation/ wait for call TECHNIQUE: One view of the chest was acquired. COMPARISON: [facility], CR, XR CHEST 2V, 12/07/2019, 10:51. FINDINGS: Surgical changes and devices: Endotracheal tube is in satisfactory position above the prince. Overlying monitoring leads and wires are in place. Nasogastric tube is present in the stomach. Lungs and pleura: Dense right upper lobe opacity and moderately dense left perihilar opacity. There is mild right infrahilar opacity as well. Air bronchograms are visible. No pleural effusions or pneumothorax. Mediastinum: Mediastinal contours appear normal. Heart size is normal. Bones and chest wall: No suspicious bony lesions. Overlying soft tissues appear unremarkable. IMPRESSION: 1. Adequate position of tubes. 2. Significant bilateral multifocal pulmonary consolidations concerning for pneumonia and atelectasis. Dictated by: Anastasiya Valerio M.D. on 12/07/2019 at 14:42 Approved by: Anastasiya Valerio M.D. on 12/07/2019 at 14:44
[2019-12-07 14:08] LABS: Reflexed Lactate in 2 Hours Y
[2019-12-07 14:12] LABS: Ictotest Urine Positive (Negative)
[2019-12-07] MEDS: ETOMIDATE 2 MG/ML 10 ML VIAL 22.2 MG IV (14:38)
[2019-12-07 14:44] LABS: Lactate 2HR (Lactic Acid Rflx) 3.2 mmol/L (0.7-2.1)
[2019-12-07] MEDS: ROCURONIUM 50 MG/5 ML INJ 44 MG IV (14:45)
[2019-12-07] MEDS: propofoL 1,000 MG/100 ML VIAL 4.436 MG IV (14:59)
[2019-12-07] MEDS: fentaNYL 100 MCG/2 ML INJ 25 MCG IV (15:05)
--- NOTE | 2019-12-07 15:09 | PC.NURSE ---
NGT placement confirmed by X ray.
[2019-12-07 15:14] LABS: HCO3 ABG 22 mmol/L (22-26); PCO2 ABG 60.6 mmHg (35-45); PO2 ABG 81 mmHg (80-100); TCO2 ABG 23 mmol/L (21-31); pH ABG 7.16 (7.35-7.45)
[2019-12-07 15:15] LABS: Oxygen Saturation ABG 92 % (95-100)
--- NOTE | 2019-12-07 15:26 | PC.NURSE ---
Provider at bedside discussed patients increase work of breathing. Patient agreeable to intubation. RT, Credit Review Officer viky Merida RN at bedside. Timeout performed. Patient preoxygenated prior to intubation. Patient medicated with RSI. Intubated with no complications. 7.5 tube 24 at the teeth.
--- NOTE | 2019-12-07 15:50 | PC.NURSE ---
transferred to [facility] monitoring @ [phone]
== END 2019-12-07 16:16 | disposition short-term general hospital (02) ==
PROVIDERS: Emergency Provider Emergency Medicine; Family Provider Internal Medicine; PCP Internal Medicine
DX: R09.02 Hypoxemia (principal); J18.9 Pneumonia, unspecified organism; R79.89 Other specified abnormal findings of blood chemistry; R05 Cough; R06.02 Shortness of breath; R53.1 Weakness
CPT/HCPCS: 31500; 36415; 36600; 71045; 71046; 74018; 80053; 81001; 81003; 82550; 82728; 82805; 83605; 83615; 83880; 84145; 84484; 85025; 85379; 86140; 87040; 87070; 87086; 87205; 87635; 93005; 94660; 94770; 94799; 96365; 96367; 96375; 99285; 99291; 99292; J1956; J2704; J2930; J3010

== ENCOUNTER → 2020-01-08 09:04 | Outpatient (ROUT) | payer OTHER, SELFPAY ==
[2019-12-07 12:49] VITALS: PULSE 93; RESP 36; O2SAT 94
[2020-01-09 23:06] LABS: COVID19 Sendout Not Detected (Not Detected)
== END ==
PROVIDERS: Family Provider Internal Medicine; PCP Internal Medicine; Visit Provider Nurse Practitioner
DX: Z11.59 Encounter for screening for other viral diseases (principal)
CPT/HCPCS: 87635

== ENCOUNTER → 2020-08-29 09:17 | Outpatient (CLI) | payer OTHER, SELFPAY ==
[2019-12-07 12:49] VITALS: PULSE 93; RESP 36; O2SAT 94
[2020-08-29 11:34] LABS: COVID19 -Nasal RAPID Negative (Negative)
== END ==
PROVIDERS: Family Provider Internal Medicine; PCP Internal Medicine; Visit Provider Physician Assistant
DX: Z20.822 Contact with and (suspected) exposure to COVID-19 (principal)
CPT/HCPCS: 87635

== ENCOUNTER 2020-08-31 12:50 | Day surgery (SDC) | payer OTHER, SELFPAY ==
[2019-12-07 12:49] VITALS: PULSE 93; RESP 36; O2SAT 94
[2020-08-31 13:09] VITALS: BP 141/68; PULSE 77; RESP 15; TEMP 37.2; O2SAT 100; BMI 20.7
[2020-08-31] MEDS: LACTATED RINGERS 1,000 ML 200 ML IV (13:30)
--- NOTE | 2020-08-31 14:12 | PM.HP.1 ---
History of Present Illness History of Present Illness Chief [place] [facility] [place] History Medical History (Updated 12/22/19 @ 00:01 by ) Pneumonia Family & Social History Social History: household members spouse Tobacco & Substance use: Smoking Status Never smoker alcohol intake frequency a few times a week Substance Use Type does not use Meds Home Medications and Allergies Home Medications Medication Instructions Recorded Confirmed Type calcium crb,[id number] 1 tab PO DAILY 12/07/19 08/31/20 History [Citracal Plus Bone Density] Allergies Allergy/AdvReac Type Severity Reaction Status Date / Time Sulfa (Sulfonamide Allergy Verified 12/07/19 13:13 Antibiotics) Review of Systems Review of Systems ROS: Yes All systems reviewed with the patient and are negative except as otherwise documented Exam Vital Signs (past 8 hours): - 08/31/20 13:09 Temperature 99.0 F Pulse Rate 77 Respiratory Rate 15 Blood Pressure 141/68 H Pulse Oximetry 100 Oxygen Delivery Method Room Air Narrative Exam Narrative: Awake alert and oriented x3, pupils equal round reactive to light, oropharynx clear, heart regular rate and rhythm, lungs clear to auscultation bilaterally, abdomen nontender and nondistended, extremities without edema, no gross neurologic deficits noted Assessment & Plan Assessment & Plan narrative: Colon cancer screening for colonoscopy COVID-19 COVID-19 status: Negative
[2020-08-31] MEDS: fentaNYL 250 MCG/5 ML INJ IV (14:15)
[2020-08-31] MEDS: MIDAZOLAM 5 MG/5 ML VIAL IV (14:15)
--- NOTE | 2020-08-31 14:33 | PM.OP.ENDO ---
Operative Date/Time/Diagnoses Date of procedure: 08/31/20 Procedure & Clinicians Study performed: Diagnostic colonoscopy Moderate conscious sedation was administered by the endoscopy nurse and supervised by the endoscopist. The following parameters were monitored: Oxygen saturation, heart rate, blood pressure, and response to care. 3 mg of midazolam, 100 mcg of fentanyl given. Same procedure as scheduled: Yes Indications: Colon cancer screening. Last colonoscopy was 2008 Procedure Notes Procedure in detail: Prior to the procedure, history and physical was performed, and patient medications and allergies were reviewed. Preprocedure nursing history and assessment was reviewed. Patient identification and proposed procedure were verified by the physician and nurse in the procedure room. The physical status of the patient was reassessed after the procedure. After informed consent was obtained including risks, benefits, and alternatives, the scope was passed under direct vision. Throughout the procedure, the patient's blood pressure, pulse, and oxygen saturations were monitored continuously. The colonoscope was introduced through the anus and advanced to the cecum as identified by the appendiceal orifice and ileocecal valve. The patient tolerated the procedure well. Bowel prep was deemed adequate to detect polyps greater than 5 mm. HUY and perianal examinations were unremarkable. Retroflexion in the rectum revealed grade 1 internal hemorrhoids. The entire examined colon was tortuous. Impression: Internal hemorrhoids Tortuous colon No specimens collected Sedation minutes: 20 Specimen(s): none sent Complications: other (EBL 0. No complications) Post-procedure Plan for aftercare: No recommendation for repeat colonoscopy for colon cancer screening due to age Resume previous diet Resume home medications Patient has a contact number available for emergencies. The signs and symptoms of potential delayed complications were discussed with the patient. Return to normal activities tomorrow. Written discharge instructions were provided to the patient. Discharge home with escort
[2020-08-31 14:39] VITALS: BP 103/56; PULSE 66; RESP 14; TEMP 37; O2SAT 100
[2020-08-31 14:40] VITALS: BP 102/85; PULSE 74; RESP 14; O2SAT 100
[2020-08-31 14:46] VITALS: BP 106/58; PULSE 68; RESP 10; TEMP 36.9; O2SAT 100
[2020-08-31 14:51] VITALS: BP 114/61; PULSE 62; RESP 14; O2SAT 100
[2020-08-31 14:52] VITALS: BP 107/64; PULSE 61; RESP 12; TEMP 36.3; O2SAT 100
== END 2020-08-31 15:11 | disposition home or self-care (01) ==
PROVIDERS: PCP Internal Medicine; Referring Provider Internal Medicine; Visit Provider Internal Medicine
PROC: 0DJD8ZZ Inspection of Lower Intestinal Tract, Via Natural or Artificial Opening Endoscopic (ICD-10-PCS; CPT 45378; principal; 2020-08-31 14:00)
DX: Z12.11 Encounter for screening for malignant neoplasm of colon (principal); K64.0 First degree hemorrhoids
CPT/HCPCS: G0121; J2250; J3010

== ENCOUNTER → 2020-12-24 11:29 | Outpatient (CLI) | payer OTHER, SELFPAY ==
[2019-12-07 12:49] VITALS: PULSE 93; RESP 36; O2SAT 94
--- NOTE | 2020-12-24 | DI.MG.S_ITS ---
BILATERAL DIGITAL SCREENING MAMMOGRAM 3D/2D WITH CAD: 12/24/2020 CLINICAL: Routine screening. Comparison is made to exams dated: 11/12/2019 mammogram, 08/18/2018 mammogram, and 08/12/2017 mammogram - [facility]. The tissue of both breasts is heterogeneously dense. This may lower the sensitivity of mammography. Current study was also evaluated with a Computer Aided Detection (CAD) system. There is possible developing architectural distortion in the left breast posterior depth superior region seen on the mediolateral oblique view only. There is a post-surgical scar associated with the architectural distortion. No other significant masses, calcifications, or other findings are seen in either breast. IMPRESSION: INCOMPLETE: NEEDS ADDITIONAL IMAGING EVALUATION The possible developing architectural distortion in the left breast is indeterminate. Additional views with possible ultrasound are recommended. This exam was interpreted at Station ID: [id number]. NOTE: For mammograms, a report in lay terms will be sent to the patient. Approximately 15% of breast malignancies will not be visualized mammographically. In the management of a palpable breast mass, a negative mammogram must not discourage biopsy of a clinically suspicious lesion. Electronically Signed By: Anastasiya fuentes/vince:12/26/2020 09:04:12 letter sent: Additional Imaging Needed ACR BI-RADS Category 0: Incomplete 3340F
== END ==
PROVIDERS: PCP Internal Medicine; Referring Provider Internal Medicine; Visit Provider Internal Medicine
DX: Z12.31 Encounter for screening mammogram for malignant neoplasm of breast (principal)
CPT/HCPCS: 77063; 77067

== ENCOUNTER → 2021-02-22 08:34 | Outpatient (CLI) | payer OTHER, SELFPAY ==
[2019-12-07 12:49] VITALS: PULSE 93; RESP 36; O2SAT 94
--- NOTE | 2021-02-22 | DI.MG.S_ITS ---
UNILATERAL LEFT DIGITAL DIAGNOSTIC MAMMOGRAM 3D/2D WITH ADDITIONAL VIEWS POST LUMPECTOMY: 02/22/2021 CLINICAL: Additional evaluation requested from prior study. Comparison is made to exams dated: 12/24/2020 mammogram, 11/12/2019 mammogram, and 08/18/2018 mammogram - . The tissue of left breast is heterogeneously dense. This may lower the sensitivity of mammography. The benign architectural distortion in the left breast posterior depth superior region seen on the mediolateral oblique view only is no longer seen. This is not seen in additional views. Additionally, there is a stable benign cyst in the left breast middle depth central to the nipple seen on the mediolateral oblique view only. No other significant masses or calcifications are seen in the breast. IMPRESSION: BENIGN There is no mammographic evidence of malignancy. Return to annual mammogram screening schedule is recommended. This exam was interpreted at Station ID: [id number]. NOTE: For mammograms, a report in lay terms will be sent to the patient. Approximately 15% of breast malignancies will not be visualized mammographically. In the management of a palpable breast mass, a negative mammogram must not discourage biopsy of a clinically suspicious lesion. Electronically Signed By: Abilio Mcfarlane acr/:02/24/2021 10:11:30 letter sent: Normal Exam ACR BI-RADS Category 2: Benign Finding(s) 3342F
== END ==
PROVIDERS: PCP Internal Medicine; Referring Provider Internal Medicine; Visit Provider Internal Medicine
DX: R92.8 Other abnormal and inconclusive findings on diagnostic imaging of breast (principal); N60.02 Solitary cyst of left breast
CPT/HCPCS: 77065; G0279

== ENCOUNTER 2021-03-07 15:48 | Emergency (ER) | payer OTHER, SELFPAY ==
[2019-12-07 12:49] VITALS: PULSE 93; RESP 36; O2SAT 94
[2021-03-07 15:57] VITALS: BP 154/76; PULSE 72; RESP 18; TEMP 36.7; O2SAT 98; BMI 21.3
--- NOTE | 2021-03-07 16:24 | DI.US.S_ITS ---
PROCEDURE: US PERIPH VENOUS LOW EXTREM RT INDICATIONS: PAIN, SWELLING, LONG TRIP, SENT BY TECHNIQUE: Real-time imaging, as well as color and pulse Doppler interrogation, were performed of the lower extremity deep veins from the inguinal ligament to the popliteal fossa. COMPARISON: None. FINDINGS: The common femoral, femoral and popliteal veins are normally compressible, and free of intraluminal thrombus. Color and pulse Doppler demonstrate normal phasic intraluminal flow. There is normal augmentation response to distal compression maneuver. IMPRESSION: 1. No evidence of acute DVT. 2. Preliminary report conveyed by the daycare director to the ordering provider. Dictated by: Anastasiya Valerio M.D. on 03/07/2021 at 18:06 Approved by: Anastasiya Valerio M.D. on 03/07/2021 at 18:06
--- NOTE | 2021-03-07 17:04 | ED.LOWEXIN ---
HPI - Extremity Injury (Lower) General Chief Complaint: Extremity Injury, Lower Stated Complaint: sent by Chiropractor Time Seen by Provider: 03/07/21 15:49 Source: patient and family Mode of arrival: Ambulatory Limitations: no limitations History of Present Illness HPI Narrative: 75-year-old female nonsmoker with noncontributory medical history presents with her at the request of her chiropractor for evaluation of right leg pain. She recently took a cross-country road trip to [place] and a week or 2 after started developing increasing pain in her right thigh and behind her right knee. She states this pain seems to be worse when she moves and improves with rest. She denies any fever or chills. She denies any specific injury or trauma. She denies any loss of control of bowel or bladder. She denies any numbness, tingling or weakness. She had been seen by her chiropractor who did an adjustment made her feel on some levels better but given recent travel and description of pain she was sent here for evaluation of a potential deep vein thrombosis Related Data Home Medications Medication Instructions Recorded Confirmed calcium carb,cit 300 mg-D3 200 1 tab PO DAILY 12/07/19 08/31/20 unit-min no.34-genistein 13.5 mg tablet (Citracal Plus Bone Density Builder) Previous Rx's Medication Instructions Recorded gabapentin 300 mg capsule 300 mg PO BEDTIME #14 cap 03/07/21 methylprednisolone 4 mg tablets in See Rx Instructions .ROUTE 03/07/21 a dose pack (Medrol (Sunil)) .COMPLEX #21 ea Allergies Allergy/AdvReac Type Severity Reaction Status Date / Time Sulfa (Sulfonamide Allergy Verified 03/07/21 15:57 Antibiotics) Review of Systems Review of Systems Narrative: GENERAL: Denies chills, fatigue, malaise, fever, sweats. HEENT: Denies sinus pain, ear pain, sore throat, difficulty swallowing, dizziness. RESPIRATORY: Denies dyspnea, cough, wheezing, hemoptysis, sputum. CARDIOVASCULAR: Denies chest pain, palpitations, orthopnea, edema, GASTROINTESTINAL: Denies nausea, vomiting, abdominal pain, diarrhea, constipation, melena. : Denies dysuria, frequency, incontinence, hematuria, urinary retention. MUSCULOSKELETAL: See HPI SKIN: Denies rash, skin lesions, or other NEUROLOGIC: Denies weakness, headache, numbness, change in speech, confusion, seizures, incoordination. PSYCHIATRIC: No concerning psychosocial issues. 12 point review of systems is negative except for those stated above Patient History Medical History (Updated 03/07/21 @ 17:47 by Martinez Davis DO) Pneumonia Social History household members: spouse Smoking Status: Never smoker Smoking Status: Never smoker alcohol intake frequency: 0-2 drinks per day Substance Use Type: does not use Exam Narrative Exam Narrative: GEN: AOx3 and in mild distress EYES: Pupils are equal, round, and reactive to light and accommodation. Extraoccular muscles are intact bilaterally. There is no subconjunctival hemorrhage or exudate. CHEST: Lungs are clear to auscultation bilaterally and free of wheezes, rales, or rhonchi. Heart rate is regular rhythm, there are no murmurs, clicks, rubs, or gallops. There is no chest wall tenderness. ABD: Abdomen is soft and nontender. There is no guarding or rebound. Bowel sounds are normal in all 4 quadrants. There is no mass or organomegaly. EXT: Full painless ROM of all extremities with no loss of sensation or strength. No obvious redness, swelling or warmth SKIN: Warm, pink, and dry. No erythema or rash Initial Vital Signs Initial Vital Signs: Vital Signs Temperature 98.0 F 03/07/21 15:57 Pulse Rate 72 03/07/21 15:57 Respiratory Rate 18 03/07/21 15:57 Blood Pressure 154/76 H 03/07/21 15:57 Pulse Oximetry 98 03/07/21 15:57 Course Orders Ordered: ED Orders 03/07/21 16:24 US periph venous low extrem rt Stat Vital Signs Vital signs: Vital Signs - 8 hr 03/07/21 15:57 Temperature 98.0 F Pulse Rate 72 Respiratory Rate 18 Blood Pressure 154/76 H Pulse Oximetry 98 MDM - Extremity Injury (Lower) Imaging Data US - DVT: Radiologist's Impression: Sherrell Lomas??75??F??1945 ? Allergy/Adv: Sulfa (Sulfonamide Antibiotics) (More??) Close Vascular Ultrasound (Signed) Anastasiya Valerio - 03/07/21 Mammogram, Additional Views (Signed) Abilio Mcfarlane - 02/22/21 Mammogram Screening (Signed) TeodoroAnastasiya - 12/24/20 Telemetry Strips 08/31/20 Chest X-Ray (Signed) Anastasiya Valerio - 12/07/19 Telemetry Strips 12/07/19 Abdomen X-Ray (Signed) Teodoro,Anastasiya - 12/07/19 Chest X-Ray (Signed) Gamaliel Perez - 12/07/19 Mammogram Screening (Signed) Juan Alberto Kamn - 11/12/19 Bone Densitometry 09/04/18 Mammogram Screening (Signed) Brian Kim - 08/18/18 Launch?[place] [address] Ultrasound Report Signed Patient: Sherrell Lomas MR#: [id number] : 1945 Acct:[id number] Age/Sex: 75 / F Date of Service: 03/07/21 Loc: ED Accession Number: [id number] ?? Procedure: US periph venous low extrem rt Ordering Provider: Martinez Davis D.O. PROCEDURE:? US PERIPH VENOUS LOW EXTREM RT ? INDICATIONS:? PAIN, SWELLING, LONG TRIP, SENT BY ? TECHNIQUE:? Real-time imaging, as well as color and pulse Doppler interrogation, were performed of the lower extremity deep veins from the inguinal ligament to the popliteal fossa.? ? COMPARISON:? None. ? FINDINGS:? The common femoral, femoral and popliteal veins are normally compressible, and free of intraluminal thrombus.? Color and pulse Doppler demonstrate normal phasic intraluminal flow.? There is normal augmentation response to distal compression maneuver. ? ? IMPRESSION:? 1. No evidence of acute DVT. 2. Preliminary report conveyed by the advanced quality engineer to the ordering provider. ? ? ? Dictated by: Anastasiya Valerio M.D. on 03/07/2021 at 18:06 ? ? Approved by: Anastasiya Valerio M.D. on 03/07/2021 at 18:06 ? Discharge Plan Departure Patient Disposition: Home Clinical Impression: Lumbar radiculopathy, right Instructions: DI for Lumbar Radiculopathy Activity Restrictions/Additional Instructions: *You have been diagnosed with [acute right leg pain, most likely due to a mild lumbar radiculopathy. Your history, physical exam and ultrasound would suggest a very low likelihood of clot. *What to do: *Please continue to take your regular medications as directed. [ ] New medication prescriptions sent to your pharmacy: [ ] [x ] New medication written as a paper prescription [ ] No new medications given *Please follow up with your Chiropractor tomorrow as we discussed. It is very reasonable to discuss the medications I've given you with him prior to getting them filled. *Return to Emergency Department if you should have any new, worsening or concerning symptoms, such as [loss of bowel or bladder control, lower extremity weakness, fever greater than 101 F or other bothersome symptoms Prescriptions: New gabapentin 300 mg capsule 300 mg PO BEDTIME Qty: 14 RF: 0 methylprednisolone [Medrol (Sunil)] 4 mg tablets,dose pack See Rx Instructions .ROUTE .COMPLEX Qty: 21 RF: 0 No Action Citracal Plus Bone Density 300-200-13.5 mg-unit-mg tablet 1 tab PO DAILY RF: 0 Referrals: Stephany Cortes MD [Primary Care Provider] -
[2021-03-07 17:55] VITALS: BP 130/63; PULSE 65; O2SAT 100
== END 2021-03-07 17:56 | disposition home or self-care (01) ==
PROVIDERS: Emergency Provider Emergency Medicine; PCP Internal Medicine
DX: M54.16 Radiculopathy, lumbar region (principal)
CPT/HCPCS: 93971; 99281; 99283

== ENCOUNTER → 2021-03-22 12:40 | Outpatient (CLI) | payer OTHER, SELFPAY ==
[2019-12-07 12:49] VITALS: PULSE 93; RESP 36; O2SAT 94
--- NOTE | 2021-03-22 | DI.RAD.S_ITS ---
PROCEDURE: XR KNEE RT 4V INDICATIONS: Pain in right knee TECHNIQUE: 4 views of the knee were acquired. COMPARISON: [facility], , KNEE 3V RIGHT, 01/10/2011, 8:19. FINDINGS: Bones: No fractures or dislocations. No suspicious bony lesions. Moderate right medial and patellofemoral compartment narrowing. It is mildly progressive compared to prior exam. Periarticular osteophytes are present. No erosions. Moderate medial compartment narrowing is noted on the left. There is prominent right lateral patellar subluxation. Soft tissues: Minimal to mild joint effusion. No suspicious soft tissue calcifications. 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 Dictated by: Mercy Goldstein M.D. on 03/22/2021 at 15:12 Approved by: Mercy Goldstein M.D. on 03/22/2021 at 15:14
== END ==
PROVIDERS: PCP Internal Medicine; Referring Provider Internal Medicine; Visit Provider Internal Medicine
DX: M25.561 Pain in right knee (principal)
CPT/HCPCS: 73564

== ENCOUNTER → 2021-12-29 07:02 | Outpatient (CLI) | payer OTHER, SELFPAY ==
[2019-12-07 12:49] VITALS: PULSE 93; RESP 36; O2SAT 94
[2021-12-29 08:29] LABS: Hematocrit 41.4 % (36-46); Hemoglobin 14.1 g/dL (12.0-16.0); Mean Corpuscular HGB Conc 34.1 % (30-36); Mean Corpuscular Hemoglobin 31.9 PG (26-34); Mean Corpuscular Volume 93.7 fL (80-100); Platelet Count 189 X10^3/uL (150-400); Red Blood Cell Count 4.42 X10^6/uL (4.0-5.2); Red Cell Distribution Width 13.9 % (11.6-14.8)
[2021-12-29 08:50] LABS: Alanine Aminotransferase 20 IU/L (<35); Albumin 4.1 g/dL (3.5-5.0); Albumin Globulin Ratio 1.7 (1.0-2.8); Alkaline Phosphatase 75 U/L (38-126); Aspartate Aminotransferase 24 IU/L (14-36); BUN Creatinine Ratio 25.3 (6-22); Bilirubin Total 0.5 mg/dL (0.2-1.3); Blood Urea Nitrogen 19 mg/dL (7-17); Calcium 8.8 mg/dL (8.4-10.2); Carbon Dioxide 32 mmol/L (22-32); Chloride 104 mmol/L (98-107); Cholesterol 199 mg/dL (140-199); Estimated Glomerular Filt Rate > 60 mL/min (>60); Globulin 2.4 g/dL (1.7-4.1); Glucose 92 mg/dL (80-110); HDL Cholesterol 70 mg/dL (40-60); HEMOLYSIS < 15 (0-50); LDL Cholesterol Calculated 113 mg/dL (<100); Potassium 4.5 mmol/L (3.4-5.1); Sodium 140 mmol/L (137-145); Total Protein 6.5 g/dL (6.3-8.2); Triglycerides 80 mg/dL (35-150)
[2021-12-29 09:22] LABS: TSH w/ Reflex to FT4 1.48 uIU/mL (0.47-4.68)
== END ==
PROVIDERS: PCP Registered Nurse Diabetes Educator; Referring Provider Registered Nurse Diabetes Educator; Visit Provider Registered Nurse Diabetes Educator
DX: Z00.00 Encounter for general adult medical examination without abnormal findings (principal); E78.5 Hyperlipidemia, unspecified; M85.80 Other specified disorders of bone density and structure, unspecified site; R74.8 Abnormal levels of other serum enzymes; R79.89 Other specified abnormal findings of blood chemistry; R94.4 Abnormal results of kidney function studies
CPT/HCPCS: 36415; 80053; 80061; 84443; 85027

== ENCOUNTER → 2022-02-14 09:49 | Outpatient (CLI) | payer OTHER, SELFPAY ==
[2019-12-07 12:49] VITALS: PULSE 93; RESP 36; O2SAT 94
--- NOTE | 2022-02-14 09:51 | DI.MG.S_ITS ---
BILATERAL DIGITAL SCREENING MAMMOGRAM 3D/2D WITH CAD: 02/14/2022 CLINICAL: Routine screening. Comparison is made to exams dated: 12/24/2020 mammogram, 11/12/2019 mammogram, 08/18/2018 mammogram, 08/12/2017 mammogram, and 02/22/2021 mammogram - [facility]. Both breasts are heterogeneously dense, which may obscure small masses (category c / 51-75% glandular tissue). Current study was also evaluated with a Computer Aided Detection (CAD) system. There are benign calcifications in both breasts. No significant masses, calcifications, or other findings are seen in either breast. There has been no significant interval change. IMPRESSION: BENIGN There is no mammographic evidence of malignancy. A 1 year screening mammogram is recommended. Based on the Tyrer Cuzick model (a risk assessment model) the patient's lifetime risk is 5.4% and her 10 year risk is 0.0%. According to the ACR, ACS, and NCCN guidelines, an annual breast MRI exam along with mammogram is recommended if the patient's lifetime risk is 20% or greater. This exam was interpreted at Station ID: [id number]. NOTE: For mammograms, a report in lay terms will be sent to the patient. Approximately 15% of breast malignancies will not be visualized mammographically. In the management of a palpable breast mass, a negative mammogram must not discourage biopsy of a clinically suspicious lesion. Electronically Signed By: David cordero/vince:02/14/2022 13:40:52 letter sent: Normal Exam ACR BI-RADS Category 2: Benign Finding(s) 3342F
== END ==
PROVIDERS: PCP Registered Nurse Diabetes Educator; Referring Provider Registered Nurse Diabetes Educator; Visit Provider Registered Nurse Diabetes Educator
DX: Z12.31 Encounter for screening mammogram for malignant neoplasm of breast; Z13.820 Encounter for screening for osteoporosis; M85.852 Other specified disorders of bone density and structure, left thigh; Z78.0 Asymptomatic menopausal state
CPT/HCPCS: 77063; 77067; 77080

== ENCOUNTER → 2022-03-27 10:46 | Outpatient (CLI) | payer OTHER, SELFPAY ==
[2019-12-07 12:49] VITALS: PULSE 93; RESP 36; O2SAT 94
[2022-03-27 11:41] LABS: Add Manual Diff / Slide Review NO; Basophils Absolute Auto 0 /uL (0-100); Basophils Percent Auto 0.2 % (0-2); Eosinophils Absolute Auto 0 /uL (0-450); Eosinophils Percent Auto 1.1 % (2-4); Hematocrit 39.5 % (36-46); Hemoglobin 13.5 g/dL (12.0-16.0); Lymphocytes Absolute Auto 1100 /uL (1100-4500); Lymphocytes Percent Auto 28.9 % (25-40); Mean Corpuscular HGB Conc 34.2 % (30-36); Mean Corpuscular Volume 93.7 fL (80-100); Monocytes Absolute Auto 400 /uL (0-900); Monocytes Percent Auto 11.5 % (3-14); Neutrophils Absolute Auto 2300 /uL (1500-7000); Neutrophils Percent Auto 58.3 % (50-75); Platelet Count 183 X10^3/uL (150-400); Red Blood Cell Count 4.22 X10^6/uL (4.0-5.2); Red Cell Distribution Width 13.9 % (11.6-14.8); White Blood Cell Count 3.9 X10^3/uL (4.5-11.0)
== END ==
PROVIDERS: PCP Registered Nurse Diabetes Educator; Referring Provider Registered Nurse Diabetes Educator; Visit Provider Registered Nurse Diabetes Educator
DX: D72.819 Decreased white blood cell count, unspecified (principal)
CPT/HCPCS: 36415; 85025

== ENCOUNTER → 2022-09-04 08:30 | Outpatient (CLI) | payer OTHER, SELFPAY ==
[2019-12-07 12:49] VITALS: PULSE 93; RESP 36; O2SAT 94
[2022-09-04 10:02] LABS: Add Manual Diff / Slide Review NO; Basophils Absolute Auto 0 /uL (0-100); Basophils Percent Auto 0.2 % (0-2); Eosinophils Absolute Auto 0 /uL (0-450); Eosinophils Percent Auto 0.9 % (2-4); Hematocrit 39.4 % (36-46); Hemoglobin 13.4 g/dL (12.0-16.0); Lymphocytes Absolute Auto 900 /uL (1100-4500); Lymphocytes Percent Auto 43.4 % (25-40); Mean Corpuscular HGB Conc 34.1 % (30-36); Mean Corpuscular Hemoglobin 31.4 PG (26-34); Mean Corpuscular Volume 92.2 fL (80-100); Monocytes Absolute Auto 500 /uL (0-900); Monocytes Percent Auto 24.1 % (3-14); Neutrophils Absolute Auto 700 /uL (1500-7000); Neutrophils Percent Auto 31.4 % (50-75); Platelet Count 136 X10^3/uL (150-400); Red Blood Cell Count 4.27 X10^6/uL (4.0-5.2); Red Cell Distribution Width 13.6 % (11.6-14.8); White Blood Cell Count 2.1 X10^3/uL (4.5-11.0)
[2022-09-04 11:38] LABS: Alanine Aminotransferase 33 IU/L (<35); Albumin Globulin Ratio 1.8 (1.0-2.8); Alkaline Phosphatase 83 U/L (38-126); Aspartate Aminotransferase 32 IU/L (14-36); BUN Creatinine Ratio 21.3 (6-22); Bilirubin Total 0.6 mg/dL (0.2-1.3); Blood Urea Nitrogen 16 mg/dL (7-17); Calcium 8.6 mg/dL (8.4-10.2); Carbon Dioxide 31 mmol/L (22-32); Chloride 101 mmol/L (98-107); Cholesterol 169 mg/dL (140-199); Creatine Kinase 58 U/L (30-135); Estimated Glomerular Filt Rate > 60 mL/min (>60); Globulin 2.2 g/dL (1.7-4.1); Glucose 95 mg/dL (80-110); HDL Cholesterol 53 mg/dL (40-60); HEMOLYSIS < 15 (0-50); LDL Cholesterol Calculated 97 mg/dL (<100); Potassium 4.4 mmol/L (3.4-5.1); Sodium 137 mmol/L (137-145); Total Protein 6.2 g/dL (6.3-8.2); Triglycerides 96 mg/dL (35-150)
[2022-09-04 12:05] LABS: TSH w/ Reflex to FT4 1.33 uIU/mL (0.47-4.68)
[2022-09-04 13:21] LABS: Erythrocyte Sedimentation Rate 16 MM/HR (0-20)
== END ==
PROVIDERS: PCP Registered Nurse Diabetes Educator; Referring Provider Registered Nurse Diabetes Educator; Visit Provider Registered Nurse Diabetes Educator
DX: E78.5 Hyperlipidemia, unspecified (principal); R42 Dizziness and giddiness; Z51.81 Encounter for therapeutic drug level monitoring
CPT/HCPCS: 36415; 80053; 80061; 82550; 84443; 85025; 85651; 86140

== ENCOUNTER → 2022-09-12 08:54 | Outpatient (CLI) | payer OTHER, SELFPAY ==
[2019-12-07 12:49] VITALS: PULSE 93; RESP 36; O2SAT 94
[2022-09-12 09:42] LABS: Add Manual Diff / Slide Review NO; Basophils Absolute Auto 0 /uL (0-100); Basophils Percent Auto 0.3 % (0-2); Eosinophils Absolute Auto 0 /uL (0-450); Eosinophils Percent Auto 1.2 % (2-4); Hematocrit 37.1 % (36-46); Hemoglobin 12.7 g/dL (12.0-16.0); Lymphocytes Absolute Auto 1000 /uL (1100-4500); Lymphocytes Percent Auto 26.6 % (25-40); Mean Corpuscular HGB Conc 34.3 % (30-36); Mean Corpuscular Hemoglobin 31.3 PG (26-34); Mean Corpuscular Volume 91.4 fL (80-100); Monocytes Absolute Auto 500 /uL (0-900); Monocytes Percent Auto 15.3 % (3-14); Neutrophils Absolute Auto 2000 /uL (1500-7000); Neutrophils Percent Auto 56.6 % (50-75); Platelet Count 242 X10^3/uL (150-400); Red Blood Cell Count 4.06 X10^6/uL (4.0-5.2); Red Cell Distribution Width 13.4 % (11.6-14.8); White Blood Cell Count 3.6 X10^3/uL (4.5-11.0)
[2022-09-12 10:09] LABS: C-Reactive Protein Quant 0.7 mg/dL (<1.0)
== END ==
PROVIDERS: PCP Registered Nurse Diabetes Educator; Referring Provider Registered Nurse Diabetes Educator; Visit Provider Registered Nurse Diabetes Educator
DX: D70.9 Neutropenia, unspecified (principal); R79.82 Elevated C-reactive protein (CRP)
CPT/HCPCS: 36415; 85025; 86140

== ENCOUNTER 2022-09-25 12:38 | Emergency (ER) | payer OTHER, SELFPAY ==
[2019-12-07 12:49] VITALS: PULSE 93; RESP 36; O2SAT 94
[2022-09-25 12:43] VITALS: BP 156/70; PULSE 70; RESP 16; TEMP 36.9; O2SAT 99; BMI 23.0
--- NOTE | 2022-09-25 12:52 | DI.CT.S_ITS ---
PROCEDURE: CT HEAD/BRAIN WO CON INDICATIONS: fall/pain/hit head TECHNIQUE: Noncontrast 4.5 mm thick angled axial sections acquired from the foramen magnum to the vertex, with coronal and sagittal reformats. For radiation dose reduction, the following was used: automated exposure control, adjustment of mA and/or kV according to patient size. COMPARISON: None. FINDINGS: Image quality: Excellent. CSF spaces: Basal cisterns are patent. No extra-axial fluid collections. The ventricles are symmetric in size and shape. Brain: No intracranial bleeds or masses. There is cerebral volume loss for age, with resultant ventricular and sulcal prominence. There are periventricular and deep white matter chronic small vessel ischemic changes. There is intracranial internal carotid artery atherosclerosis. Skull and face: Calvarium and visualized facial bones appear intact, without suspicious lesions. Subcutaneous hematoma along the anterior calvarium, without underlying fracture. Sinuses: Visualized sinuses and mastoids are clear. IMPRESSION: No acute intracranial pathology. Subcutaneous hematoma along the anterior calvarium, without underlying fracture. Dictated by: Michael Jj M.D. on 09/25/2022 at 12:31 Approved by: Michael Jj M.D. on 09/25/2022 at 12:32
--- NOTE | 2022-09-25 12:53 | DI.RAD.S_ITS ---
PROCEDURE: XR ELBOW RT MIN 3V INDICATIONS: fall/pain TECHNIQUE: 3 views of the elbow were acquired. COMPARISON: None. FINDINGS: Bones: No fractures or dislocations. No suspicious bony lesions. Soft tissues: No elbow joint effusion. No suspicious soft tissue calcifications. IMPRESSION: No visualized acute fracture or dislocation. However, if clinical concern and/or pain persist, short interval imaging followup in 7-10 days is recommended, as occult injury cannot be definitively excluded. Dictated by: Mercy Goldstein M.D. on 09/25/2022 at 13:27 Approved by: Mercy Goldstein M.D. on 09/25/2022 at 13:28
--- NOTE | 2022-09-25 12:53 | DI.RAD.S_ITS ---
PROCEDURE: XR WRIST RT MIN 3V INDICATIONS: fall/pain TECHNIQUE: 4 views of the wrist were acquired. COMPARISON: None. FINDINGS: Bones: No fractures or dislocations. No suspicious bony lesions. 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 Scaphoid view: No visualized fracture. Soft tissues: No suspicious soft tissue calcifications. IMPRESSION: No visualized acute fracture or dislocation. However, if clinical concern and/or pain persist, short interval imaging followup in 7-10 days is recommended, as occult injury cannot be definitively excluded. Significant 1st CMC arthritic change. Dictated by: Mercy Goldstein M.D. on 09/25/2022 at 13:26 Approved by: Mercy Goldstein M.D. on 09/25/2022 at 13:27
[2022-09-25 15:09] VITALS: BP 158/72; PULSE 66; RESP 16; O2SAT 99
[2022-09-25] MEDS: KETOROLAC 30 MG/ML VIAL IM (16:13)
[2022-09-25] MEDS: LIDOCAINE PATCH 1 EACH ADH..PATCH 2 EACH TOP (16:14)
--- NOTE | 2022-10-02 16:32 | ED.FALL ---
HPI - Fall <Sindy Munguia PA-C - Last Filed: 10/02/22 16:44> General Chief Complaint: Fall Stated Complaint: Fall, hit head, R arm pain Time Seen by Provider: 09/25/22 15:29 Source: patient and family Mode of arrival: Ambulatory History of Present Illness HPI Narrative: 77-year-old female with past medical history osteoarthritis, eczema, GERD, osteopenia, dyslipidemia presents to the ED status post a mechanical fall sustained just prior to arrival. Patient states that she tripped over a cord in the garage as she was taking in groceries to the house, states that the cord is usually not there and that she did not see it. Patient denies feeling lightheaded or dizzy or otherwise unwell leading up to the fall. Patient states that she hit her head. Patient did not lose consciousness. Patient is not on blood thinners. Patient complains of right elbow and right wrist pain. Patient denies numbness, tingling, weakness. Patient denies chest pain, shortness of breath. Related Data Home Medications Medication Instructions Recorded Confirmed calcium citrate 315 mg 1 tab PO DAILY 12/26/21 09/03/22 calcium-vitamin D3 6.25 mcg (250 unit) tablet (Citracal + Vitamin D Maximum) cholecalciferol (vitamin D3) 25 25 mcg PO DAILY 12/26/21 09/03/22 mcg (1,000 unit) capsule multivitamin (Daily Multi-Vitamin 1 tab PO DAILY 12/26/21 09/03/22 tablet) omeprazole 20 mg capsule,delayed 20 mg PO DAILY 12/26/21 09/03/22 release zinc acetate 50 mg (zinc) capsule 50 mg PO DAILY 12/26/21 09/03/22 (Galzin) Previous Rx's Medication Instructions Recorded pneumoc 20-alan conj-dip cr(PF) 0.5 0.5 ml IM ONCE #0.5 mL 09/03/22 mL IM syringe (Prevnar 20 (PF)) Allergies Allergy/AdvReac Type Severity Reaction Status Date / Time Sulfa (Sulfonamide Allergy Verified 09/03/22 14:35 Antibiotics) Review of Systems <Sindy Munguia PA-C - Last Filed: 10/02/22 16:44> Review of Systems Narrative: Lump on left forehead ROS Unobtainable: All systems reviewed & are unremarkable except as noted in HPI and below Constitutional Constitutional: Denies chills, Denies fatigue, Denies fever(s), Denies frequent falls, Denies lethargy and Denies weakness Eyes Eyes: Denies change in vision, Denies eye discharge, Denies irritation and Denies loss of vision ENT Ears, Nose, Mouth, and Throat: Denies change in voice, Denies dizziness, Denies neck pain, Denies sore throat and Denies throat swelling Cardiovascular Cardiovascular: Denies chest pain, Denies irregular heart rhythm, Denies lightheadedness, Denies palpitations, Denies dyspnea, Denies dyspnea on exertion and Denies orthopnea Respiratory Respiratory: Denies cough, Denies dyspnea, Denies dyspnea on exertion and Denies wheezing Gastrointestinal Gastrointestinal: Denies abdominal pain, Denies change in bowel habits, Denies diarrhea, Denies nausea and Denies vomiting Genitourinary Genitourinary: Denies hematuria, Denies flank pain, Denies urinary incontinence and Denies urinary urgency Musculoskeletal Musculoskeletal: Denies back pain, Denies muscle weakness, Denies neck pain, Denies numbness and Denies tingling Comments: Right elbow and wrist pain Integumentary/Breasts Skin/Breast: Denies pruritus, Denies erythema, Denies rash and Denies wounds Neurologic Neurologic: Denies behavioral changes, Denies confusion, Denies dizziness, Denies frequent falls, Denies loss of vision, Denies numbness, Denies tingling and Denies weakness Psychiatric Psychiatric: Denies anxiety, Denies behavioral changes, Denies confusion, Denies depression, Denies homicidal ideation and Denies suicidal ideation Endocrine Endocrine: Denies fatigue, Denies flushing and Denies palpitations Hematologic/Lymphatic Hematologic/Lymphatic: Denies easy bruising Allergic/Immunologic Allergic/Immunologic: Denies urticaria, Denies throat swelling and Denies wheezing Patient History <Sindy Munguia PA-C - Last Filed: 10/02/22 16:44> Medical History Bacterial pneumonia (~2019) Cataracts, bilateral (~2017) Chicken pox (~1949) Chronic GERD Dyslipidemia Eczema (~2016) Hearing loss (~2006) Hemorrhoid (~1974) Measles Mumps Osteoarthritis (~2011) Osteopenia (~2011) Pneumonia Wears glasses Surgical History Anesthesia History of appendectomy (~1979) Kidney stones (~1979) S/P breast lumpectomy (~1987) Family History Father Cancer Mother Cancer Sister Cancer Grandfather History of heart disease Grandmother History of heart disease Social History household members: spouse Smoking Status: Never smoker Smoking Status: Never smoker alcohol intake frequency: 0-2 drinks per day Substance Use Type: does not use Exam <Sindy Munguia PA-C - Last Filed: 10/02/22 16:44> Narrative Exam Narrative: Const General:?cooperative, healthy appearing and comfortable HENMT Head:? Lump noted to right forehead, there is mild abrasion but skin is intact. No skull depressions. Ears:?hearing grossly normal bilaterally Nose:?external nose normal Face and sinus:?normal facial exam and sinuses nontender Mouth:?oral mucosae normal Throat:?posterior oropharynx normal Eyes General:?appearance normal, both eyes and all related structures Neck Neck:?normal visual inspection and no lymphadenopathy noted Resp Effort & Inspection:?normal respiratory effort Auscultation:?clear to auscultation bilaterally Cardio Rate:?regular rate Rhythm:?regular rhythm Musculoskeletal Mild tenderness to palpation of right elbow and wrist. No swelling, deformities, bruising noted on exam. There is full range of motion. Strength and sensation is intact. Patient is neurovascularly intact. Neuro General:?patient alert, patient awake and patient oriented x3 Initial Vital Signs Initial Vital Signs: Vital Signs Temperature 98.5 F 09/25/22 12:43 Pulse Rate 70 09/25/22 12:43 Respiratory Rate 16 09/25/22 12:43 Blood Pressure 156/70 H 09/25/22 12:43 Pulse Oximetry 99 09/25/22 12:43 Oxygen Delivery Method Room Air 09/25/22 12:43 <Alysa Curran DO - Last Filed: 10/03/22 07:30> Initial Vital Signs Initial Vital Signs: Vital Signs Temperature 98.5 F 09/25/22 12:43 Pulse Rate 70 09/25/22 12:43 Respiratory Rate 16 09/25/22 12:43 Blood Pressure 156/70 H 09/25/22 12:43 Pulse Oximetry 99 09/25/22 12:43 Oxygen Delivery Method Room Air 09/25/22 12:43 Course <Sindy Munguia PA-C - Last Filed: 10/02/22 16:44> Orders Ordered: Discontinued Medications Ketorolac Tromethamine (Ketorolac 30 Mg/Ml Vial) 30 mg IM NOW ONE Stop: 09/25/22 16:03 Last Admin: 09/25/22 16:13 Dose: 30 mg Documented By: AT Lidocaine (Lidocaine Patch 1 Each Adh..Patch) 2 each TOP NOW ONE Stop: 09/25/22 16:03 Last Admin: 09/25/22 16:14 Dose: 2 each Documented By: AT <Alysa Curran DO - Last Filed: 10/03/22 07:30> Orders Ordered: Discontinued Medications Ketorolac Tromethamine (Ketorolac 30 Mg/Ml Vial) 30 mg IM NOW ONE Stop: 09/25/22 16:03 Last Admin: 09/25/22 16:13 Dose: 30 mg Documented By: AT Lidocaine (Lidocaine Patch 1 Each Adh..Patch) 2 each TOP NOW ONE Stop: 09/25/22 16:03 Last Admin: 09/25/22 16:14 Dose: 2 each Documented By: AT MDM - Fall <Sindy Munguia PA-C - Last Filed: 10/02/22 16:44> [facility] Narrative Medical decision making narrative: 77-year-old female with past medical history osteoarthritis, eczema, GERD, osteopenia, dyslipidemia presents to the ED status post a mechanical fall sustained just prior to arrival. Concern for fracture/dislocation versus intracranial bleed versus skull fracture versus musculoskeletal sprain/strain versus other. Obtained CT head, x-rays of elbow and wrist. No acute findings on imaging other than a frontal subcutaneous hematoma. Supportive care discussed with patient. Recommend follow-up with PCP as soon as possible. ED return precautions discussed with patient. Patient verbalized understanding. Medical records reviewed: Yes Discharge Plan Departure Patient Disposition: Home Clinical Impression: Fall Instructions: How to Prevent Falls Activity Restrictions/Additional Instructions: You were evaluated in the ED today for some injuries from a fall. Your CT head, elbow and wrist x-rays were normal. The CT did show that you have a blood clot under the skin on your forehead, however that will be reabsorbed by your body over the next several days. There are no internal head bleed or skull fractures. No fractures visualized in your right wrist or elbow. You may apply lidocaine patches which are available [id number] at all drug stores under the brand name Salonpas. You may take ibuprofen or Aleve for the pain. You may apply ice for the 1st 24 hours, after which you may apply heat packs. You may also use César wraps to wrap your elbow and wrist for more comfort. Please follow-up with your PCP as soon as possible. Return to the ED if you experience numbness, tingling, weakness. Prescriptions: No Action cholecalciferol (vitamin D3) 25 mcg (1,000 unit) capsule 25 mcg PO DAILY multivitamin [Daily Multi-Vitamin] Tablet 1 tab PO DAILY Galzin 50 mg (zinc) capsule 50 mg PO DAILY calcium citrate-vitamin D3 [Citracal + D Maximum] 315 mg-6.25 mcg (250 unit) tablet 1 tab PO DAILY omeprazole 20 mg capsule,delayed release(DR/EC) 20 mg PO DAILY Prevnar 20 (PF) 0.5 mL syringe 0.5 ml IM ONCE Qty: 0.5 0RF Rx Instructions: as a single dose Referrals: Jovan Brown ARNP [Primary Care Provider] - Stand Alone Forms: Patient Portal/API <Alysa Curran DO - Last Filed: 10/03/22 07:30> Cosign ED Attending Noe Attestation: I was immediately available in the department for consultation. Documentation has been reviewed.
== END 2022-09-25 16:23 | disposition home or self-care (01) ==
PROVIDERS: Emergency Provider Student in an Organized Health Care Education/Training Program; PCP Registered Nurse Diabetes Educator
DX: S09.90XA Unspecified injury of head, initial encounter (principal); M25.521 Pain in right elbow; M25.531 Pain in right wrist; W01.0XXA Fall on same level from slipping, tripping and stumbling without subsequent striking against object, initial encounter
CPT/HCPCS: 70450; 73080; 73110; 96372; 99284; J1885

== ENCOUNTER → 2023-09-06 08:17 | Outpatient (CLI) | payer OTHER, SELFPAY ==
[2019-12-07 12:49] VITALS: PULSE 93; RESP 36; O2SAT 94
[2023-09-06 10:43] LABS: Hematocrit 40.9 % (36-46); Hemoglobin 13.6 g/dL (12.0-16.0); Mean Corpuscular HGB Conc 33.3 % (30-36); Mean Corpuscular Hemoglobin 31.8 PG (26-34); Mean Corpuscular Volume 95.5 fL (80-100); Platelet Count 191 X10^3/uL (150-400); Red Blood Cell Count 4.28 X10^6/uL (4.0-5.2); White Blood Cell Count 3.9 X10^3/uL (4.5-11.0)
[2023-09-06 11:05] LABS: Alanine Aminotransferase 24 IU/L (<35); Albumin 4.2 g/dL (3.5-5.0); Albumin Globulin Ratio 1.9 (1.0-2.8); Alkaline Phosphatase 81 U/L (38-126); Aspartate Aminotransferase 28 IU/L (14-36); BUN Creatinine Ratio 29.7 (6-22); Bilirubin Total 0.6 mg/dL (0.2-1.3); Blood Urea Nitrogen 22 mg/dL (7-17); Calcium 9.2 mg/dL (8.4-10.2); Carbon Dioxide 32 mmol/L (22-32); Chloride 106 mmol/L (98-107); Cholesterol 205 mg/dL (140-199); Estimated Glomerular Filt Rate > 60 mL/min (>60); Globulin 2.2 g/dL (1.7-4.1); Glucose 89 mg/dL (80-110); HDL Cholesterol 78 mg/dL (40-60); HEMOLYSIS < 15 (0-50); LDL Cholesterol Calculated 112 mg/dL (<100); Potassium 5.4 mmol/L (3.4-5.1); Sodium 140 mmol/L (137-145); Total Protein 6.4 g/dL (6.3-8.2); Triglycerides 77 mg/dL (35-150)
--- NOTE | 2023-09-06 14:40 | DI.MG.S_ITS ---
BILATERAL DIGITAL SCREENING MAMMOGRAM 3D/2D WITH CAD: 09/06/2023 CLINICAL: Routine screening. Comparison is made to exams dated: 02/14/2022 mammogram, 12/24/2020 mammogram, and 11/12/2019 mammogram - [facility]. Both breasts are heterogeneously dense, which may obscure small masses (category c / 51-75% glandular tissue). Current study was also evaluated with a Computer Aided Detection (CAD) system. There are benign calcifications in both breasts. No significant masses, calcifications, or other findings are seen in either breast. There has been no significant interval change. IMPRESSION: BENIGN There is no mammographic evidence of malignancy. A 1 year screening mammogram is recommended. Based on the Tyrer Cuzick model (a risk assessment model) the patient's lifetime risk is 4.3% and her 10 year risk is 0.0%. According to the ACR, ACS, and NCCN guidelines, an annual breast MRI exam along with mammogram is recommended if the patient's lifetime risk is 20% or greater. This exam was interpreted at Station ID: [id number]. NOTE: For mammograms, a report in lay terms will be sent to the patient. Approximately 15% of breast malignancies will not be visualized mammographically. In the management of a palpable breast mass, a negative mammogram must not discourage biopsy of a clinically suspicious lesion. Electronically Signed By: Sebastian leiva/vince:09/06/2023 15:06:23 letter sent: Normal Exam ACR BI-RADS Category 2: Benign Finding(s) [id number]
== END ==
PROVIDERS: PCP Registered Nurse Diabetes Educator; Referring Provider Registered Nurse Diabetes Educator; Visit Provider Registered Nurse Diabetes Educator
DX: Z12.31 Encounter for screening mammogram for malignant neoplasm of breast (principal); E78.5 Hyperlipidemia, unspecified; Z79.899 Other long term (current) drug therapy; R79.89 Other specified abnormal findings of blood chemistry; R74.8 Abnormal levels of other serum enzymes; R94.4 Abnormal results of kidney function studies; M85.80 Other specified disorders of bone density and structure, unspecified site
CPT/HCPCS: 36415; 77063; 77067; 80053; 80061; 85027

== ENCOUNTER → 2023-10-08 09:34 | Outpatient (CLI) | payer OTHER, SELFPAY ==
[2019-12-07 12:49] VITALS: PULSE 93; RESP 36; O2SAT 94
[2023-10-08 11:39] LABS: BUN Creatinine Ratio 25.4 (6-22); Blood Urea Nitrogen 18 mg/dL (7-17); Calcium 9.3 mg/dL (8.4-10.2); Carbon Dioxide 31 mmol/L (22-32); Chloride 105 mmol/L (98-107); Estimated Glomerular Filt Rate > 60 mL/min (>60); Glucose 91 mg/dL (80-110); HEMOLYSIS < 15 (0-50); Potassium 4.8 mmol/L (3.4-5.1); Sodium 138 mmol/L (137-145)
== END ==
PROVIDERS: PCP Registered Nurse Diabetes Educator; Referring Provider Registered Nurse Diabetes Educator; Visit Provider Registered Nurse Diabetes Educator
DX: E87.5 Hyperkalemia (principal)
CPT/HCPCS: 36415; 80048

== ENCOUNTER → 2024-03-30 09:39 | Outpatient (CLI) | payer OTHER, SELFPAY ==
[2019-12-07 12:49] VITALS: PULSE 93; RESP 36; O2SAT 94
--- NOTE | 2024-03-30 09:40 | DI.RAD.S_ITS ---
PROCEDURE: XR DEXA AXIAL SKELETON INDICATIONS: reevaluate COMPARISON: [facility], DIONICIO, XR DEXA AXIAL SKELETON, 02/14/2022, 10:09. FINDINGS: Lumbar Spine: Bone mineral density 1.032 g/cm2, T score -0.1. There is interval 3.2% increase in total lumbar spine bone mineral density. Left Hip: Bone mineral density 0.745 g/cm2, T score -1.6. There is interval 0.2% decrease in total left hip bone mineral density. Left Femoral Neck: Bone mineral density 0.622 g/cm2, T score -2.0. There is interval 5% increase in left femoral neck bone mineral density. Right Hip: Bone mineral density 0.732 g/cm2, T score -1.7. There is interval 0.2% decrease in total right hip bone mineral density. Right Femoral Neck: Bone mineral density 0.637 g/cm2, T score -1.9. Fracture Risk Calculation (when applicable): 10-year fracture risk of a major osteoporotic fracture 15 percent and of a hip fracture 4.4 percent. (T score greater or equal to -1.0 to: NORMAL) (T score from -1.1 to -2.4: OSTEOPENIA) (T score less than or equal to -2.5: OSTEOPOROSIS) IMPRESSION: Osteopenia with increased 10 year fracture risk as above. Follow-up guidelines as follows: Osteoporosis: Consider a repeat DEXA and Vertebral Fracture Assessment (VFA) exam in 2 years or sooner if medically necessary, to reassess this patient's status. Osteopenia: Consider a repeat DEXA in 2-3 years to reassess this patient's status, or if there is a new clinical indication. Normal: Consider a repeat DEXA in 5 years or sooner, or if there is a new clinical indication. All treatment decisions require clinical judgment and consideration of individual patient factors, including patient preferences, comorbidities, previous drug use, risk factors not captured in the FRAX model (e.g., frailty, falls, vitamin D deficiency, increased bone turnover, interval significant decline in bone density ) and possible under- or over-estimation of fracture risk by FRAX. In addition, the NOF Guide recommends that FDA-approved medical therapies be considered in postmenopausal women and men age >= 50 years with a: * Hip or vertebral (clinical or morphometric) fracture * T-score of <=-2.5 at the spine or hip * Ten-year fracture probability by FRAX of >= 3% for hip fracture or >=20% for major osteoporotic fracture. People with diagnosed cases of osteoporosis or at high risk for fracture should have regular bone mineral density tests. For patients eligible for Medicare, routine testing is allowed once every 2 years. The testing frequency can be increased to one year for patients who have rapidly progressing disease, those who are receiving or discontinuing medical therapy to restore bone mass, or have additional risk factors. Dictated by: Saúl Lemon M.D. on 03/30/2024 at 13:09 Approved by: Saúl Lemon M.D. on 03/30/2024 at 13:20
== END ==
LOC: RAD 09:40
PROVIDERS: PCP Registered Nurse Diabetes Educator; Referring Provider Registered Nurse Diabetes Educator; Visit Provider Registered Nurse Diabetes Educator
DX: M85.89 Other specified disorders of bone density and structure, multiple sites
CPT/HCPCS: 77080

== ENCOUNTER → 2024-09-30 08:00 | Outpatient (CLI) | payer OTHER, SELFPAY ==
[2019-12-07 12:49] VITALS: PULSE 93; RESP 36; O2SAT 94
--- NOTE | 2024-09-30 08:01 | DI.MG.S_ITS ---
MM screening mammo BI: 09/30/2024. BI-RADS: 2 CLINICAL: 79-year old female for bilateral screening mammogram. Tyrer-Cuzick lifetime risk of 2.7%. No personal or first-degree family history of breast cancer. The patient had a prior left breast biopsy. PRIOR EXAMS 09/06/2023, 02/14/2022, 02/22/2021, 12/24/2020, 11/12/2019, 08/18/2018, 08/12/2017, 08/10/2016, 01/13/2015, 01/04/2015. MAMMOGRAPHY TECHNIQUE: 2D and 3D (tomosynthesis) digital mammographic views obtained, with additional images as needed for full coverage. Current study was also evaluated with a Computer Aided Detection (CAD) system. DENSITY C. The breasts are heterogeneously dense, which may obscure small masses. MAMMOGRAPHY FINDINGS Bilateral: Benign-appearing calcifications noted. There are no suspicious masses, calcifications, or other findings in the breast. IMPRESSION: * No evidence of malignancy with benign findings. RECOMMENDATIONS Bilateral * Annual screening mammography. OVERALL ASSESSMENT CATEGORY BI-RADS-2: Benign. The [employer] recommends annual screening mammography beginning at age 40 for women with average risk of breast cancer. ELECTRONICALLY SIGNED: Brian Kim M.D. on 09/30/2024 at 11:50:22 AM PT Interpreting Station ID: [id number]
== END ==
PROVIDERS: PCP Registered Nurse Diabetes Educator; Referring Provider Registered Nurse Diabetes Educator; Visit Provider Registered Nurse Diabetes Educator
DX: Z12.31 Encounter for screening mammogram for malignant neoplasm of breast (principal); R92.333 Mammographic heterogeneous density, bilateral breasts
CPT/HCPCS: 77063; 77067

== ENCOUNTER 2024-12-14 10:37 | Emergency (ER) | payer OTHER, SELFPAY ==
[2019-12-07 12:49] VITALS: PULSE 93; RESP 36; O2SAT 94
--- NOTE | 2024-12-14 10:47 | ED.BACK ---
HPI - Back Pain/Injury General Chief Complaint: Back Pain/Injury Stated Complaint: Back pain Time Seen by Provider: 12/14/24 10:47 History of Present Illness HPI Narrative: 79-year-old female history of osteoarthritis, eczema, GERD, osteopenia, dyslipidemia, presents with left lower back pain metabolic week progressively got worse unable to sit or stand at this time. Nothing makes it better or worse. Denies chest pain, shortness breath, cough, nausea, vomiting, diarrhea, urinary complaints, trauma to the area, recent heavy lifting, numbness, tingling. Other than what is stated 14 point review of system is negative. Related Data Home Medications ?Medication ?Instructions ?Recorded ?Confirmed calcium 315 mg (as 1 tab PO DAILY 12/26/21 11/25/23 citrate)-vitamin D3 6.25 mcg (250 unit) tablet (Citracal + Vitamin D Maximum) cholecalciferol (vitamin D3) 25 25 mcg PO DAILY 12/26/21 11/25/23 mcg (1,000 unit) capsule multivitamin (Daily Multi-Vitamin 1 tab PO DAILY 12/26/21 11/25/23 tablet) zinc acetate 50 mg (zinc) capsule 50 mg PO DAILY 12/26/21 11/25/23 (Galzin) Red fish oil PO 10/07/23 11/25/23 Previous Rx's ?Medication ?Instructions ?Recorded hydrocodone 5 mg-acetaminophen 325 1 tab PO Q4-6H PRN pain #20 tabs 12/14/24 mg tablet Allergies Allergy/AdvReac Type Severity Reaction Status Date / Time Sulfa (Sulfonamide Allergy Verified 11/25/23 10:00 Antibiotics) Review of Systems Review of Systems ROS Unobtainable: All systems reviewed & are unremarkable except as noted in HPI and below Patient History Medical History Wears glasses Eczema (~2016) Osteoarthritis (~2011) Bacterial pneumonia (~2019) Mumps Measles Chicken pox (~1949) Hearing loss (~2006) Cataracts, bilateral (~2017) Hemorrhoid (~1974) Chronic GERD Osteopenia (~2011) Dyslipidemia Pneumonia Surgical History Anesthesia S/P breast lumpectomy (~1987) History of appendectomy (~1979) Kidney stones (~1979) Family History Father Cancer Mother Cancer Sister Cancer Grandfather History of heart disease Grandmother History of heart disease Social History household members: spouse Smoking Status: Never smoker alcohol intake frequency: 0-2 drinks per day Exam Narrative Exam Narrative: GENERAL: [79] year old patient appears stated age. Well-developed patient, in mild distress. HEAD: Atraumatic. Normocephalic. EYES: Pupils equal round and reactive. Extraocular motions intact. No scleral icterus. No injection or drainage. ENT: Nose without bleeding, purulent drainage. Throat without erythema, tonsillar hypertrophy or exudate. Airway patent. NECK: Trachea midline. Non tender CARDIOVASCULAR: Regular rate and rhythm without murmurs, gallops, or rubs. RESPIRATORY: Clear to auscultation. Breath sounds equal bilaterally. No wheezes, rales, or rhonchi. GASTROINTESTINAL: Abdomen soft, non-tender, nondistended. EXTREMITIES: No edema or joint tenderness. BACK: Nontender without deformity or crepitance. No flank tenderness. NEURO: AOx3. SKIN: No rash or erythema of visible areas Initial Vital Signs Initial Vital Signs: Vital Signs Temperature 98.3 F 12/14/24 10:51 Pulse Rate 69 12/14/24 10:51 Respiratory Rate 15 12/14/24 10:51 Blood Pressure 133/63 12/14/24 10:51 Pulse Oximetry 98 12/14/24 10:51 Oxygen Delivery Method Room Air 12/14/24 10:51 Course Orders Ordered: ED Orders 12/14/24 10:53 CT abdomen pelvis w con Stat EKG-12 Lead Stat 12/14/24 11:06 Complete Blood Count AUTO DIFF Stat Comprehensive Metabolic Panel Stat Lipase Stat Ondansetron HCl (Ondansetron 4 Mg/2 Ml Inj) 4 mg IV NOW PRN PRN Reason: Nausea And Vomiting Ondansetron HCl (Ondansetron 4 Mg Odt) 4 mg PO NOW PRN PRN Reason: Nausea And Vomiting Discontinued Medications Hydromorphone HCl (Hydromorphone 1 Mg/Ml Syringe) 1 mg IV NOW ONE Stop: 12/14/24 14:15 Lactated Ringer's (Lactated Ringers) 1,000 mls @ 1,000 mls/hr IV BOLUS ONE Stop: 12/14/24 11:52 Last Infusion: 12/14/24 13:08 Dose: Infused Documented By: Admin: 12/14/24 11:15 Dose: 1,000 mls/hr Documented By: NILDA Ketorolac Tromethamine (Ketorolac 30 Mg/Ml Vial) 15 mg IV NOW ONE Stop: 12/14/24 12:34 Last Admin: 12/14/24 12:45 Dose: 15 mg Documented By: NILDA Vital Signs Vital signs: Vital Signs - 8 hr 12/14/24 10:51 Temperature 98.3 F Pulse Rate 69 Respiratory Rate 15 Blood Pressure 133/63 Pulse Oximetry 98 Oxygen Delivery Method Room Air MDM - Back Pain/Injury Lab Data 12/14/24 11:06 12/14/24 11:06 Labs: Lab Results 12/14/24 Range/Units 11:06 WBC 3.3 L (4.5-11.0) X10^3/uL RBC 4.18 (4.0-5.2) X10^6/uL Hgb 13.3 (12.0-16.0) g/dL Hct 39.5 (36-46) % MCV 94.7 (80-100) fL MCH 31.9 (26-34) PG MCHC 33.7 (30-36) % RDW 14.1 (11.6-14.8) % Plt Count 173 (150-400) X10^3/uL Neut % (Auto) 56.5 (50-75) % Lymph % (Auto) 28.1 (25-40) % [place] % (Auto) 14.1 H (3-14) % Eos % (Auto) 1.0 L (2-4) % Baso % (Auto) 0.3 (0-2) % Neut # (Auto) 1800 (4304-7865) /uL Lymph # (Auto) 900 L (7419-1414) /uL Gos[place] # (Auto) 500 (0-900) /uL Eos # (Auto) 0 (0-450) /uL Baso # (Auto) 0 (0-100) /uL Sodium 140 (137-145) mmol/L Potassium 4.1 (3.4-5.1) mmol/L Chloride 107 (98-107) mmol/L Carbon Dioxide 27 (22-32) mmol/L BUN 21 H (7-17) mg/dL Creatinine 0.78 (0.52-1.04) mg/dL Estimated GFR > 60 (>60) mL/min BUN/Creatinine Ratio 26.9 H (6-22) Glucose 113 H (70-99) mg/dL Calcium 8.6 (8.4-10.2) mg/dL Total Bilirubin 0.5 (0.2-1.3) mg/dL AST 27 (14-36) IU/L ALT 20 (<35) IU/L Alkaline Phosphatase 77 (38-126) U/L Total Protein 6.1 L (6.3-8.2) g/dL Albumin 3.9 (3.5-5.0) g/dL Globulin 2.2 (1.7-4.1) g/dL Albumin/Globulin Ratio 1.8 (1.0-2.8) Lipase 157 (23-300) U/L Urine Dip Bedside Urine Glucose Negative Bedside Urine Bilirubin - Negative Bedside Urine Ketone - Negative Urine Specific [place] 1.005 Bedside Urine Occult Blood - Negative Bedside Urine pH 7 Bedside Urine Protein - Negative Bedside Urine Urobilinogen - Negative Bedside Urine Nitrite - Negative Bedside Urine Leukocytes +/- [address] scan - abdomen/pelvis: Radiologist's Impression: [place] [address] CT Scan Report Signed Patient: Sherrell Lomas MR#: [id number] : 1945 Acct:[id number] Age/Sex: 79 / F Date of Service: 12/14/24 Loc: ED Accession Number: [id number] Procedure: CT abdomen pelvis w con Ordering Provider: Fuad Olivera D.O. PROCEDURE: CT ABDOMEN PELVIS W CON INDICATIONS: abd / L flank pain TECHNIQUE: After the administration of intravenous contrast, axial sections acquired from the lung bases to the pubic symphysis. Coronal and sagittal reformats were performed. For radiation dose reduction, the following was used: automated exposure control, adjustment of mA and/or kV according to patient size. COMPARISON: None. FINDINGS: Image quality: Diagnostic. Lower Chest: No significant findings. ABDOMEN: Liver: No solid mass. Gallbladder: No radiopaque gallstones or wall thickening. Biliary ducts: No biliary dilation. Pancreas: No ductal dilation. Spleen: Size is within normal limits. Adrenal Glands: No adrenal nodules. Kidneys and Ureters: No hydronephrosis. No solid mass. No complex renal cystic lesion which requires follow up. Stomach and Bowel: There is no bowel obstruction. No abnormal bowel wall thickening or mesenteric fat stranding. Mild sigmoid diverticulosis without CT evidence of acute diverticulitis. Appendix is not definitively seen. No focal inflammatory changes are noted in right lower quadrant abdomen. No abscess collection. Peritoneum: No abnormal intraperitoneal fluid. No free air. Ventral Wall: No significant ventral hernia. Abdominal Nodes: No retroperitoneal or mesenteric adenopathy by size criteria. Vessels: Aorta and inferior vena cava are normal in size. PELVIS: Pelvic Organs: Calcified and noncalcified uterine fibroids are seen. No gross abnormality is seen in bilateral ovaries. Bladder: No bladder wall thickening, accounting for underdistention. Pelvic Nodes: Nonspecific mildly prominent bilateral inguinal lymph nodes measures up to 1.2 cm in size. Miscellaneous: No inguinal hernias are seen. Bones: No aggressive osseous abnormality. Moderate dextroscoliosis of thoracolumbar spine is seen. Mild compensatory leftward curvature of lower lumbar spine is also noted. No acute vertebral body compression fracture. IMPRESSION: 1. No obstructing renal stones or hydronephrosis. No hydroureter. Normal appearing urinary bladder. 2. No bowel obstruction or abnormal bowel wall thickening. Sigmoid diverticulosis without CT evidence of acute diverticulitis. No abscess collection. No free fluid or free air. 3. Spondylitic changes throughout lower thoracic and lumbar spine. No acute osseous abnormalities. No aggressive appearing bony lesions. MDM Narrative Medical decision making narrative: All lab work, vital signs, nurse triage note, medication list, previous ER visits, and all imaging studies reviewed. CT abdomen and pelvis showed no obstructing renal stone or hydronephrosis. . No hydroureter normal appearing urinary bladder. No bowel obstruction or abnormal bowel wall thickening. Sigmoid diverticulosis without evidence of acute diverticulitis. No free air or free fluid. Spondylitic changes throughout lower thoracic and lumbar spine. No acute osseous abnormality. No aggressive appearing bony lesions. WBC 3.3 BUN 21 creatinine 0.78 glucose 113. Patient given fluids Toradol and Dilaudid here. Differential diagnosis includes pancreatitis kidney stone kidney infection, diverticulitis, aneurysm, back spasm. DC home on norco rx and diclofenac rx. Discharge Plan Departure Patient Disposition: Home Clinical Impression: Back pain Qualifiers: Back pain location: low back pain Chronicity: acute Back pain laterality: left Sciatica presence: without sciatica Qualified Code(s): M54.50 - Low back pain, unspecified Instructions: DI for Low Back Pain Activity Restrictions/Additional Instructions: Return with New or Worsening symptoms take medicines as directed. Follow up PCP in 1-2 weeks if no improvement in symptoms. Prescriptions: New hydrocodone-acetaminophen 5-325 mg tablet 1 tab PO Q4-6H PRN (Reason: pain) Qty: 20 0RF No Action cholecalciferol (vitamin D3) 25 mcg (1,000 unit) capsule 25 mcg PO DAILY multivitamin [Daily Multi-Vitamin] Tablet 1 tab PO DAILY Galzin 50 mg (zinc) capsule 50 mg PO DAILY calcium citrate-vitamin D3 [Citracal + D Maximum] 315 mg-6.25 mcg (250 unit) tablet 1 tab PO DAILY Red fish oil PO Referrals: Jovan Brown ARNP [Primary Care Provider, Medical] Stand Alone Forms: Patient Portal/API
[2024-12-14 10:51] VITALS: BP 133/63; PULSE 69; RESP 15; TEMP 36.8; O2SAT 98; BMI 23.0
--- NOTE | 2024-12-14 10:53 | DI.CT.S_ITS ---
PROCEDURE: CT ABDOMEN PELVIS W CON INDICATIONS: abd / L flank pain TECHNIQUE: After the administration of intravenous contrast, axial sections acquired from the lung bases to the pubic symphysis. Coronal and sagittal reformats were performed. For radiation dose reduction, the following was used: automated exposure control, adjustment of mA and/or kV according to patient size. COMPARISON: None. FINDINGS: Image quality: Diagnostic. Lower Chest: No significant findings. ABDOMEN: Liver: No solid mass. Gallbladder: No radiopaque gallstones or wall thickening. Biliary ducts: No biliary dilation. Pancreas: No ductal dilation. Spleen: Size is within normal limits. Adrenal Glands: No adrenal nodules. Kidneys and Ureters: No hydronephrosis. No solid mass. No complex renal cystic lesion which requires follow up. Stomach and Bowel: There is no bowel obstruction. No abnormal bowel wall thickening or mesenteric fat stranding. Mild sigmoid diverticulosis without CT evidence of acute diverticulitis. Appendix is not definitively seen. No focal inflammatory changes are noted in right lower quadrant abdomen. No abscess collection. Peritoneum: No abnormal intraperitoneal fluid. No free air. Ventral Wall: No significant ventral hernia. Abdominal Nodes: No retroperitoneal or mesenteric adenopathy by size criteria. Vessels: Aorta and inferior vena cava are normal in size. PELVIS: Pelvic Organs: Calcified and noncalcified uterine fibroids are seen. No gross abnormality is seen in bilateral ovaries. Bladder: No bladder wall thickening, accounting for underdistention. Pelvic Nodes: Nonspecific mildly prominent bilateral inguinal lymph nodes measures up to 1.2 cm in size. Miscellaneous: No inguinal hernias are seen. Bones: No aggressive osseous abnormality. Moderate dextroscoliosis of thoracolumbar spine is seen. Mild compensatory leftward curvature of lower lumbar spine is also noted. No acute vertebral body compression fracture. IMPRESSION: 1. No obstructing renal stones or hydronephrosis. No hydroureter. Normal appearing urinary bladder. 2. No bowel obstruction or abnormal bowel wall thickening. Sigmoid diverticulosis without CT evidence of acute diverticulitis. No abscess collection. No free fluid or free air. 3. Spondylitic changes throughout lower thoracic and lumbar spine. No acute osseous abnormalities. No aggressive appearing bony lesions. Dictated by: Saúl Lemon M.D. on 12/14/2024 at 12:17 Approved by: Saúl Lemon M.D. on 12/14/2024 at 12:27
[2024-12-14 11:14] LABS: Add Manual Diff / Slide Review NO; Hematocrit 39.5 % (36-46); Hemoglobin 13.3 g/dL (12.0-16.0); Lymphocytes Absolute Auto 900 /uL (1100-4500); Mean Corpuscular HGB Conc 33.7 % (30-36); Mean Corpuscular Hemoglobin 31.9 PG (26-34); Mean Corpuscular Volume 94.7 fL (80-100); Platelet Count 173 X10^3/uL (150-400)
[2024-12-14] MEDS: LACTATED RINGERS 1,000 ML 1000 ML IV (11:15)
[2024-12-14 11:34] LABS: Alanine Aminotransferase 20 IU/L (<35); Albumin 3.9 g/dL (3.5-5.0); Albumin Globulin Ratio 1.8 (1.0-2.8); Alkaline Phosphatase 77 U/L (38-126); Blood Urea Nitrogen 21 mg/dL (7-17); Calcium 8.6 mg/dL (8.4-10.2); Carbon Dioxide 27 mmol/L (22-32); Chloride 107 mmol/L (98-107); Estimated Glomerular Filt Rate > 60 mL/min (>60); Globulin 2.2 g/dL (1.7-4.1); Glucose 113 mg/dL (70-99); HEMOLYSIS < 15 (0-50); Lipase 157 U/L (23-300); Potassium 4.1 mmol/L (3.4-5.1); Sodium 140 mmol/L (137-145); Total Protein 6.1 g/dL (6.3-8.2)
--- NOTE | 2024-12-14 12:14 | EKG_ITS ---
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
[2024-12-14] MEDS: KETOROLAC 30 MG/ML VIAL 15 MG IV (12:45)
[2024-12-14 13:43] VITALS: PULSE 71; O2SAT 96
[2024-12-14 14:00] VITALS: BP 135/63; PULSE 61; RESP 20; O2SAT 100
[2024-12-14] MEDS: ONDANSETRON 4 MG/2 ML INJ IV (14:24)
[2024-12-14 14:30] VITALS: BP 142/67; PULSE 65; RESP 20; O2SAT 100
== END 2024-12-14 15:31 | disposition home or self-care (01) ==
PROVIDERS: Emergency Provider Family Medicine; PCP Registered Nurse Diabetes Educator
DX: M54.50 Low back pain, unspecified (principal)
CPT/HCPCS: 74177; 80053; 81003; 83690; 85025; 93005; 96361; 96374; 96375; 99283; 99284; J1171; J1885; J2405; Q9967

== ENCOUNTER → 2025-01-12 07:39 | Outpatient (CLI) | payer OTHER, SELFPAY ==
[2019-12-07 12:49] VITALS: PULSE 93; RESP 36; O2SAT 94
[2025-01-12 07:53] LABS: Hematocrit 41.0 % (36-46); Hemoglobin 13.8 g/dL (12.0-16.0); Mean Corpuscular HGB Conc 33.6 % (30-36); Mean Corpuscular Hemoglobin 31.9 PG (26-34); Mean Corpuscular Volume 95.0 fL (80-100); Platelet Count 175 X10^3/uL (150-400)
[2025-01-12 08:11] LABS: Alanine Aminotransferase 27 IU/L (<35); Albumin 4.4 g/dL (3.5-5.0); Albumin Globulin Ratio 2.0 (1.0-2.8); Alkaline Phosphatase 79 U/L (38-126); Blood Urea Nitrogen 16 mg/dL (7-17); Calcium 9.0 mg/dL (8.4-10.2); Carbon Dioxide 27 mmol/L (22-32); Chloride 105 mmol/L (98-107); Cholesterol 211 mg/dL (140-199); Estimated Glomerular Filt Rate > 60 mL/min (>60); Globulin 2.2 g/dL (1.7-4.1); Glucose 97 mg/dL (70-99); HDL Cholesterol 80 mg/dL (40-60); HEMOLYSIS < 15 (0-50); Potassium 4.3 mmol/L (3.4-5.1); Sodium 139 mmol/L (137-145); Total Protein 6.6 g/dL (6.3-8.2); Triglycerides 96 mg/dL (35-150)
== END ==
PROVIDERS: PCP Registered Nurse Diabetes Educator; Referring Provider Registered Nurse Diabetes Educator; Visit Provider Registered Nurse Diabetes Educator
DX: E78.5 Hyperlipidemia, unspecified (principal); E87.5 Hyperkalemia; D70.9 Neutropenia, unspecified; D69.6 Thrombocytopenia, unspecified
CPT/HCPCS: 36415; 80053; 80061; 85027